=== PATIENT | female | born 1930 | race Caucasian/White ===

== ENCOUNTER 2018-07-23 14:40 | Inpatient (IN) ==
[2018-07-23] MEDS ORDERED: HYDROmorphone 2 MG/ML VIAL IV PRN ×2 (15:13→21:22)
--- NOTE | 2018-07-23 15:22 | XRay Report ---
HISTORY: Fell with hip injury FINDINGS: There is an acute comminuted fracture the proximal right femur. It involves the lesser trochanter and subtrochanteric region. There is a large spicule of bone along the medial side of the proximal shaft of the femur which is displaced in a medial direction 3.4 cm. There is moderate varus angulation. The femoral head and hip joint are normal. There is no arthritis. The Greater trochanter is intact. IMPRESSION: Comminuted fracture of the proximal right femur with moderate deformity Interpreted and Authenticated by: Rishabh Kwon 07/23/18
--- NOTE | 2018-07-23 15:24 | XRay Report ---
HISTORY: Fell with wrist injury FINDINGS: There is an acute comminuted intra-articular fracture the distal radius. There is impaction at the fracture site. Bone fragments are displaced both in all directions. The carpal bones appear normal and remain normally aligned with the radius. There is foreshortening of the radius relative to the ulna. The ulna is normal. IMPRESSION: Comminuted intra-articular fracture of the distal radius with moderate deformity Interpreted and Authenticated by: Rishabh Kwon 07/23/18
--- NOTE | 2018-07-23 15:25 | XRay Report ---
HISTORY: Fell and preop to repair fractured right femur and wrist FINDINGS: The heart is moderately enlarged. The pulmonary vessels appear enlarged. Lung volumes are normal and there is no pulmonary consolidation or evidence of a mass. No pleural effusion is present. The aorta is tortuous and has calcified plaques along the wall. IMPRESSION: cardiomegaly with possible pulmonary vascular congestion Interpreted and Authenticated by: Rishabh Kwon 07/23/18
--- NOTE | 2018-07-23 15:37 | Cat Scan Report ---
History: Fell with pelvic and hip injuries TECHNIQUE: The pelvis was imaged without contrast from above the iliac crests to the proximal femurs. Sagittal and coronal reformats were created. The radiation exposure was limited using dose reduction technology. FINDINGS: There is a comminuted fracture of the proximal shaft of the right femur extending into the lesser trochanter. There is varus angulation. There is a hematoma surrounding the fracture. It measures approximately 4 x 6 cm. Fracture does not extend into the hip joint. There is no pelvic fracture is present. The left proximal femur is normal. The SI joints are normal. Mild arthritis is seen in the symphysis pubis. The L5-S1 disc is moderately narrowed and there is arthritis in the facets. No intrapelvic hematoma is present. Moderate amount stool is seen in the colon. There are few diverticula in the sigmoid colon. IMPRESSION: Fractured proximal right femur No pelvic fracture Maryuri Cardona was called with the results Interpreted and Authenticated by: Rishabh Kwon 07/23/18
--- NOTE | 2018-07-23 15:44 | Emergency Department Note ---
Fall HPI - General Chief Complaint: Fall Stated Complaint: fall, right hip deformity, right wrist pain Time Seen by Provider: 07/23/18 14:45 Source: patient, EMS Mode of arrival: EMS - History of Present Illness HPI Narrative: 87-year-old female presents with right wrist pain and deformity and right hip pain and deformity. She was visiting her friend at a [facility] when she tripped and fell. States she is unsure if she actually tripped or just her hip gave out and she fell or what exactly happened but the next thing she knew she was on the floor. She denies hitting her head. No head, neck, or back pain. She has significant right hip pain as well as right wrist pain. She is right- handed. No numbness or tingling. She was brought in by EMS. States she has been under significant stress lately. Her June 29 and about a week later her son . States the last thing she remembers was just standing there watching TV and the next thing she knew she was on the ground. Family is with her. She does live at home alone. She has family in town that check on her especially since . Place Fall Occurred: [facility] (As a visitor, not a patient) Loss of Consciousness: none Prolonged Down Time?: no Symptoms Prior to Fall: none Associated symptoms (after fall): Denies: neck pain, numbness, weakness, vertigo, confusion - Related Data Home Medications Medication Instructions Recorded Confirmed Alendronate Sodium [Fosamax] 70 mg PO WEEKLY 07/23/18 07/23/18 Aspirin [Adult Low Dose Aspirin EC] 81 mg PO DAILY 07/23/18 07/23/18 Atorvastatin [Lipitor] 20 mg PO HS 07/23/18 07/23/18 Lisinopril [Zestril] 20 mg PO DAILY 07/23/18 07/23/18 amLODIPine [Norvasc] 10 mg PO DAILY 07/23/18 07/23/18 metFORMIN [Glucophage] 500 mg PO [facility] 07/23/18 07/23/18 predniSONE [Prednisone] 5 mg PO ONCE 07/23/18 07/23/18 Allergies Allergy/AdvReac Type Severity Reaction Status Date / Time codeine AdvReac Mild Nausea Verified 07/23/18 14:48 Review of Systems All systems ED: reviewed and negative except as stated. Fall PMH - Past Medical History Medical history: Reports: hyperlipidemia, hypertension Surgical history ED: Reports: tonsillectomy - Social History smoking status: Never smoker Alcohol use: Reports: None Drug use: Reports: none Physical Exam Limitations: no limitations General appearance: alert, in no apparent distress Head: atraumatic, normocephalic, normal inspection Eye: Present: normal appearance. Absent: conjunctival injection ENT: mucous membranes moist Chest: Present: symmetric chest wall rise Respiratory: Present: normal lung sounds bilaterally. Absent: respiratory distress, rales/crackles, wheezes, accessory muscle use Cardiovascular: Present: regular rate, normal heart sounds Extremities: Absent: normal inspection (Right hip tender to palpation and is shortened and rotated. Right wrist with obvious deformity and pain over the distal radius. Pulses intact and sensation intact all 4 extremities.) Neurological: Present: alert, oriented X3 Psychiatric: Present: normal affect, normal mood Skin: Present: warm, dry, intact, normal color. Absent: rash, cyanosis, diaphoresis, erythema Course Course Narrative: At 1530 I did speak with Catia Burris on-call who is going to come in and see the patient. He would like the hospitalist to admit. @ 1343 Toy accepted pt (hospitalist) Vital Signs Temperature 97.6 F 07/23/18 14:42 Pulse Rate 64 07/23/18 14:42 Respiratory Rate 18 07/23/18 14:42 Pulse Oximetry (%) 95 07/23/18 14:42 Temperature 97.6 F 07/23/18 14:42 Pulse Rate 74 07/23/18 15:30 Respiratory Rate 18 07/23/18 14:42 Blood Pressure 118/59 07/23/18 15:30 Pulse Oximetry (%) 90 07/23/18 15:30 Fall - Lab Data Lab results reviewed: Yes I reviewed the patient's lab results. Result diagrams: 07/23/18 15:33 07/23/18 15:33 - Radiology Data Radiology results reviewed: Yes I reviewed the patient's radiology results. Disposition Pt seen by BURR GRINDER/PA only: Yes Clinical Impression: Fall, Hip fracture, right, Wrist fracture, right Disposition: Xfer As Inpt ([facility]) Condition: Fair Referrals: Libby Hawthorne ARNP [Primary Care Provider] - Bib Cheng MD [Physician] - Time of Disposition: 15:48
[2018-07-23 16:04] LABS: Basophils # (Auto) 0 K/mcL (0.0-0.3); Basophils % (Auto) 0.4 % (0.0-2.0); Eosinophils # (Auto) 0.1 K/mcL (0.0-0.7); Eosinophils % (Auto) 0.7 % (0.0-7.0); Granulocytes % (Auto) 79.3 % (38.0-78.0); Lymphocytes # (Auto) 1.2 K/mcL (1.5-4.8); Lymphocytes % (Auto) 11.1 % (15.5-49.0); Mean Cell Volume 91.9 fL (80.0-100.0); Monocytes # (Auto) 0.9 K/mcL (0.1-0.9); Monocytes % (Auto) 8.5 % (1.0-12.0); Platelet Count 473 K/mcL (140-440); RBC 4.39 M/mcL (4.00-5.20); Red Cell Distribution Width 15.3 % (11.5-14.5)
[2018-07-23 16:24] LABS: ALT/SGPT 18 U/l (0-40); Albumin 3.9 gm/dL (3.2-5.2); Albumin/Globulin Ratio 1.3 (1.0-2.3); Alkaline Phosphatase 67 U/L (39-117); Blood Urea Nitrogen 17 mg/dl (8-23)
--- NOTE | 2018-07-23 17:02 | Internal Med History&Physical ---
Medical - H&P: HPI Patient information: Note initiated : 07/23/18 at 4:57 pm Service Date, if different from initiated Date: [] Patient: Greer Mueller a 87 y/o F admitted on for Fall, Right Hip Deformity, Right Wrist Pain. Chief Complaint: [] History of present illness: Ms. Mueller is a 87 year old F with h/o rheumatic heart disease, presents to the ER today after a fall. She notes she was standing at a care center where she was visiting a friend, she fell down spontaneously, not sure if if she passed out but does not think she lost consciousness. Leg just gave away. She fell on the right side, and developed pain on the right side of her hip as well as pain in the right wrist. She was brought to the emergency room for further evaluation The patient lost her a month ago, has been depressed since. She notes that she has been fairly active before this fall. Denies any chest pain denies any shortness of breath dizziness syncope or presyncopal-like episodes nausea vomiting abdominal pain bowel or bladder complaints. Recently she was at a function that she had to walk up 3 blocks, and she did not complain of any chest pain or shortness of breath or dizziness during this walk. Obviously she did walk slowly. The patient in the emergency room had no acute complaints except for pain. On presentation she was hemodynamically stable. Labs showed a hemoglobin of 13.3 platelets 473 INR 1.0 WBC 11,000, chemistry was unremarkable. X-ray of the wrist shows comminuted intra-articular fracture of the distal radius X-ray of the femur shows femur fracture moderate deformity on the right side Pelvis CT was negative for pelvis fractures Chest x-ray shows cardiomegaly and pulmonary vascular congestion EKG shows biatrial enlargement and left ventricular hypertrophy Echo done October 2017 shows severe aortic stenosis left ventricular ejection fraction of 75% patient also had mild aortic stenosis the patient has a history of mitral valve disease. Patient will be admitted to medicine, pt going to surgery from OR Preop risks reviewed with anesthesia and family, very high risk for periopera tive mortality has been reviewed with the patient's daughter. The patient has aortic stenosis severe and has been progressively getting worse it seems. I am not 100% sure if the patient had syncope. [id number] ultrasound was done which showed that IVC collapse was 50% with inspiration. All systems: reviewed and no additional remarkable complaints except as stated (Negative except as per HPI) Medical - H&P: PMH Medical history: History of hip pain Thrombocytosis essential Hypertension Severe aortic stenosis Abnormal heart rhythm Hyperlipidemia Moderate asthma Surgical history: Cataract surgery 2016 Pertinent family history: Mother had heart problems and cancer Father of a myocardial infarction Sister had some cancer Social history: Lives by herself fairly independent, last month Non-smoker never No recreational drugs or alcohol abuse reported Medical - H&P: Meds Home Medications Medication Instructions Recorded Confirmed Type Alendronate Sodium [Fosamax] 70 mg PO WEEKLY 07/23/18 07/23/18 History Aspirin [Adult Low Dose Aspirin EC] 81 mg PO DAILY 07/23/18 07/23/18 History Atorvastatin [Lipitor] 20 mg PO HS 07/23/18 07/23/18 History Lisinopril [Zestril] 20 mg PO DAILY 07/23/18 07/23/18 History amLODIPine [Norvasc] 10 mg PO DAILY 07/23/18 07/23/18 History metFORMIN [Glucophage] 500 mg PO QAC 07/23/18 07/23/18 History predniSONE [Prednisone] 5 mg PO ONCE 07/23/18 07/23/18 History Allergies Allergy/AdvReac Type Severity Reaction Status Date / Time codeine AdvReac Mild Nausea Verified 07/23/18 14:48 Medical - H&P: Exam - Constitutional Vitals: Temp Pulse Resp BP Pulse Ox 97.6 F 82 18 110/62 92 07/23/18 16:52 07/23/18 16:52 07/23/18 16:52 07/23/18 16:52 07/23/18 16:52 Exam: GENERAL: The patient is a well-developed, well-nourished in no apparent distress. Is alert and oriented x3. VITAL SIGNS: Reviewed and as noted elsewhere. HEENT: Head is normocephalic and atraumatic. Extraocular muscles are intact. Pupils are equal, round, and reactive to light. Nares appeared normal. Mouth appears any without lesions. Mucous membranes are dry NECK: Normal to inspection, Supple, No lymphadenopathy or thyromegaly. LUNGS: Air entry equal on both sides, no wheezing, crackles or rhonchi noted. No accessory muscles of respiration. ant chest exam only, HEART: Regular rate and rhythm normal, S1 and S2 heard, no Gallop, S3 or Rub Noted, systolic murmur, aortic and mitral region, 5/6 ABDOMEN: Soft, nontender, and nondistended. Positive bowel sounds. No hepatosplenomegaly was noted. EXTREMITIES: No cyanosis, clubbing, rash, lesions or edema. NEUROLOGIC: Cranial nerves II through XII are grossly intact. Motor and Sensory System Grossly Intact PSYCHIATRIC: Normal affect, Normal Mood. Appropriate Behavior. SKIN: No ulceration or wounds noted, No jaundice, No rash noted. Medical - H&P: Reslt - Labs CBC & Chem 7: 07/23/18 15:33 07/23/18 15:33 Labs: Short CBC 07/23/18 Range/Units 15:33 WBC 11.0 (4.5-11.0) K/mcL Hgb 13.3 (12.0-15.0) g/dL Hct 40.3 (36.0-48.0) % Plt Count 473 H (140-440) K/mcL BMP 07/23/18 15:33 Sodium 139 Potassium 4.0 Chloride 102 Carbon Dioxide 26 BUN 17 Creatinine 0.8 Glucose 129 H Calcium 10.3 Liver Function 07/23/18 Range/Units 15:33 Total Bilirubin 0.4 (0.0-1.0) mg/dL AST 23 (0-37) U/l ALT 18 (0-40) U/l Alkaline Phosphatase 67 (39-117) U/L Albumin 3.9 (3.2-5.2) gm/dL Medical - H&P: A/P - Narrative A/P Narrative: A/P Femur Fracture- Pt in OR, for surgery wrist fracture- Management per ortho Syncope-not sure if pt actually had a sycope, but given her cardiac history its plausible, will monitor on tele for now. Aortic stenosis- severe, monitor bp, and fluid dynamics closely Pre op eval- High risk for wily op mortality, reviewed with family. Asthma- no wheezing noted, bronchodilators for now. DVT enoxaparin DNR code status CArdiac diet
[2018-07-23] MEDS ORDERED: PROPOFOL 200 MG/20 ML VIAL IV ONE (17:10)
[2018-07-23] MEDS ORDERED: KETAMINE 100 MG/ML ML IV ONE (17:10)
[2018-07-23] MEDS ORDERED: PHENYLEPHRINE 10 MG/ML VIAL IV ONE (17:10)
[2018-07-23] MEDS ORDERED: GLYCOPYRROLATE 0.2 MG/ML VIAL IV ONE (17:10)
[2018-07-23] MEDS ORDERED: ROCURONIUM 10 MG/ML ML IV ONE (17:10)
[2018-07-23] MEDS ORDERED: MIDAZOLAM 2 MG/2 ML VIAL IV ONE (17:10)
[2018-07-23] MEDS ORDERED: EPINEPHrine 1 MG/10 ML (1:10,000) SYRINGE IV ONE (17:10)
[2018-07-23] MEDS ORDERED: fentaNYL 100 MCG/2 ML VIAL IV ONE (17:10)
[2018-07-23] MEDS ORDERED: ROPIVACAINE HCL/PF 30 ML VIAL IJ ONE (17:10)
[2018-07-23] MEDS ORDERED: ceFAZolin 1 GM VIAL IV ONE (17:10)
[2018-07-23] MEDS ORDERED: ONDANSETRON 4 MG/2 ML VIAL IV ONE (17:10)
[2018-07-23] MEDS ORDERED: TRANEXAMIC ACID 1,000 MG/10 ML VIAL IV ONE (17:10)
[2018-07-23] MEDS ORDERED: ePHEDrine 50 MG/ML AMPUL IV ONE (17:10)
[2018-07-23] MEDS ORDERED: DEXAMETHASONE 10 MG/ML VIAL IV ONE (17:10)
[2018-07-23] MEDS ORDERED: LIDOCAINE HCL/PF 100 MG/5 ML SYRINGE IV ONE (17:10)
[2018-07-23] MEDS ORDERED: methylPREDNISolone SOD SUCC 125 MG/2 ML VIAL IV ONE (17:10)
[2018-07-23] MEDS ORDERED: VASOPRESSIN 20 UNIT/ML VIAL IV ONE (17:10)
[2018-07-23] MEDS ORDERED: NEOSTIGMINE 1 MG/ML VIAL IV ONE (17:10)
--- NOTE | 2018-07-23 17:27 | Consultation ---
DATE OF CONSULTATION: 07/23/2018 IDENTIFICATION: This is an 87-year-old female. CHIEF COMPLAINT: Right distal radius fracture and right hip fracture. HISTORY: This elderly lady was visiting a friend at the [facility]. She tripped and fell, had immediate pain and deformity of both her right upper extremity and her right lower extremity. She was transported here to [facility] where she was evaluated, and the workup has shown a comminuted fracture of her right hip. Additionally, she has a markedly collapsed and angulated intra-articular distal radius fracture. PAST MEDICAL HISTORY: Significant for hypertension and hyperlipidemia. She also has valvular heart disease and gets an echocardiogram yearly and type 2 diabetes. PAST SURGICAL HISTORY: Tonsillectomy. Otherwise, nil. MEDICATIONS: Include Fosamax, aspirin, Lipitor, Zestril, Norvasc, Glucophage, prednisone. 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 REVIEW OF SYSTEMS: Balance 10-point review of systems has been unremarkable. SOCIAL HISTORY: She lives alone. Her recently. PHYSICAL EXAMINATION: GENERAL: She is awake and alert. She is resting comfortably. HEAD: Normocephalic, atraumatic. EYES: PERRLA. Conjunctivae clear. ENT: Within normal limits. NECK: Supple without pain on range of motion. HEART: Regular. She does have a significant murmur. LUNGS: Clear bilaterally. ABDOMEN: Benign. EXTREMITIES: Lower extremities, her right lower extremity is carefully positioned to any motion, but there is shortening and malrotation. Any motion reproduces pain. She does seem to be grossly neurovascularly intact distally. Her right upper extremities again show significant deformity. Her skin is intact. She seems to be grossly without neurovascular deficit. IMAGING: Her radiographs demonstrate a complex fracture of the intertrochanteric region extending well below the lesser trochanter. Her distal radius demonstrates a markedly angulated significantly shortened distal radius fracture that is comminuted and intra-articular. IMPRESSION: Fractures as above. Both are in need of open reduction and internal fixation, would review treatment options, risks, complications, limitations of surgery. She and her daughter understand these well and wishes to proceed. GDD:in Job ID: [id number] Doc ID: [id number] Bib Cheng MD
[2018-07-23] MEDS ORDERED: GENTAMICIN SULFATE 800 MG/20 ML VIAL IR ONE (17:46)
[2018-07-23] MEDS ORDERED: fentaNYL 100 MCG/2 ML VIAL IV PRN (19:39)
[2018-07-23] MEDS ORDERED: FLUMAZENIL 0.1 MG/ML ML IV PRN (19:39)
[2018-07-23] MEDS ORDERED: IPRATROPIUM/ALBUTEROL 3 ML AMPUL.NEB NEB PRN (19:39)
[2018-07-23] MEDS ORDERED: ACETAMINOPHEN 1,000 MG/100 ML BOTTLE IV ONE (19:39)
[2018-07-23] MEDS ORDERED: LACTATED RINGERS 250 ML IV PRN (19:39)
[2018-07-23] MEDS ORDERED: NALOXONE HCL 0.4 MG/ML VIAL IV PRN ×2 (19:39→21:22)
[2018-07-23] MEDS ORDERED: BENZOCAINE/MENTHOL 1 LOZENGE PO PRN (19:39)
[2018-07-23] MEDS ORDERED: ONDANSETRON 4 MG/2 ML VIAL IV PRN ×2 (19:39→21:22)
[2018-07-23] MEDS ORDERED: METHOCARBAMOL 1,000 MG/10 ML VIAL IV PRN (19:39)
[2018-07-23] MEDS ORDERED: LACTATED RINGERS 1,000 ML IV SCH (19:45)
[2018-07-23] MEDS ORDERED: ACETAMINOPHEN 325 MG TABLET PO PRN (21:22)
[2018-07-23] MEDS ORDERED: oxyCODONE/APAP 5/325MG TABLET PO PRN (21:22)
[2018-07-23] MEDS ORDERED: IPRATROPIUM/ALBUTEROL 3 ML AMPUL.NEB NEB ONE (21:43)
[2018-07-23] MEDS: IPRATROPIUM/ALBUTEROL 3 ML AMPUL.NEB NEB SCH (21:50)
[2018-07-24] MEDS: 0.9 % SODIUM CHLORIDE 10 ML SYRINGE IV SCH ×4 (00:24→20:49)
[2018-07-24] MEDS: IPRATROPIUM/ALBUTEROL 3 ML AMPUL.NEB NEB SCH ×4 (01:15→18:28)
[2018-07-24 06:52] LABS: Basophils # (Auto) 0 K/mcL (0.0-0.3); Basophils % (Auto) 0 % (0.0-2.0); Eosinophils # (Auto) 0 K/mcL (0.0-0.7); Eosinophils % (Auto) 0 % (0.0-7.0); Granulocytes % (Auto) 95.9 % (38.0-78.0); Lymphocytes # (Auto) 0.4 K/mcL (1.5-4.8); Lymphocytes % (Auto) 1.9 % (15.5-49.0); Mean Cell Volume 92.7 fL (80.0-100.0); Mean Corpuscular HGB Conc 32.8 g/dL (31.0-36.0); Monocytes # (Auto) 0.5 K/mcL (0.1-0.9); Monocytes % (Auto) 2.2 % (1.0-12.0); Platelet Count 386 K/mcL (140-440); RBC 3.59 M/mcL (4.00-5.20); Red Cell Distribution Width 15.6 % (11.5-14.5)
[2018-07-24 07:15] LABS: ALT/SGPT 18 U/l (0-40); Albumin 3.3 gm/dL (3.2-5.2); Albumin/Globulin Ratio 1.3 (1.0-2.3); Alkaline Phosphatase 54 U/L (39-117); Bilirubin,Direct < 0.2 mg/dL (0.0-0.3); Blood Urea Nitrogen 17 mg/dl (8-23); Gamma Glutamyl Transpeptidase 11 U/L (5-36); Uric Acid 4.4 mg/dL (2.5-8.0)
--- NOTE | 2018-07-24 07:20 | Orthopedic Progress Note ---
Subjective Patient information: Note initiated : 07/24/18 at 7:18 am Service Date, if different from initiated Date: [] Patient: Greer Mueller 87 y/o F admitted on 07/23/18 for Fall, Right Hip Deformity, Right Wrist Pain. Chief Complaint: [S/p ORIF of right proximal femur fx, s/p ORIF fo right distal radius fx] Patient is doing well. She complains of tingling in the digits of her RUE likely due to the anesthetic block post surgery. Otherwise no complaints. She denies any new onset lower extremity weakness or calf tenderness. Overall pain is minimal. Principal diagnosis: Right intertrochanteric hip fx, right displaced distal radius fx Objective Vital signs: Vital Signs Temp Pulse Pulse Resp BP BP Pulse Ox 07/24/18 04:00 99.5 F H 86 12 113/58 96 07/24/18 03:00 77 12 98/55 97 07/24/18 02:00 77 12 102/56 96 07/24/18 01:00 71 12 96/57 96 07/24/18 00:00 97 F 82 16 94/51 93 07/23/18 23:00 78 12 92/50 97 07/23/18 22:41 74 16 102/53 96 07/23/18 22:26 78 16 100/55 97 07/23/18 22:06 76 16 07/23/18 22:00 79 12 95/52 96 07/23/18 21:56 78 16 88/55 96 07/23/18 21:45 80 16 07/23/18 21:41 76 12 88/51 97 07/23/18 21:26 76 16 102/50 99 07/23/18 21:22 97.6 F 77 16 100/54 97 07/23/18 21:11 98.2 F 16 100/54 95 07/23/18 21:02 97.5 F 75 22 99/46 92 07/23/18 20:50 96.7 F L 79 15 111/42 93 07/23/18 20:41 96.8 F L 77 17 101/42 91 07/23/18 20:30 96.9 F L 72 19 93/57 99 07/23/18 20:25 97.2 F 77 18 97 07/23/18 20:20 80 15 134/51 100 07/23/18 20:15 72 13 99/45 99 07/23/18 20:13 97.9 F 78 14 107/54 96 07/23/18 16:52 97.6 F 82 18 110/62 92 07/23/18 16:01 82 110/62 92 07/23/18 15:46 73 111/57 91 07/23/18 15:30 74 118/59 90 07/23/18 14:53 71 116/63 95 07/23/18 14:42 97.6 F 64 18 95 Intake and Output 07/23/18 07/24/18 07/24/18 21:59 05:59 13:59 Intake Total 1400 340 Output Total 250 250 Balance 1150 90 Intake: IV 100 Oral 340 IV - Manual Only 1300 Output: Urine Catheter Amount 150 250 Estimated Blood Loss 100 Other: Urine Appearance Clear Uretheral (Wall) Clear Urine Color Dark Yellow Uretheral (Wall) Light Tawanna Urine Odor Strong Weight 153 lb 8 oz Intake & Output: Intake & Output 07/23/18 07/24/18 07/24/18 21:59 05:59 13:59 Intake Total 1400 340 Output Total 250 250 Balance 1150 90 Weight 153 lb 8 oz Intake: IV 100 Oral 340 IV - Manual Only 1300 Output: Urine Catheter Amount 150 250 Estimated Blood Loss 100 Other: Urine Appearance Clear Uretheral (Wall) Clear Urine Color Dark Yellow Uretheral (Wall) Light Tawanna Urine Odor Strong Incision: Yes healing, Yes clean and dry Incision clean and dry: Yes Dressing: Yes clean, Yes dry, Yes intact Weight bearing status: non Neurological exam IM: Yes alert, Yes oriented X3, Yes motor sensory intact, Yes neurovascular intact Extremities exam IM: Yes calf tenderness (negative bilaterally), Yes Laura's sig n (negative bilaterally), Yes Foot pink and warm, Yes neurovascular intact - Labs CBC & BMP: 07/24/18 03:30 07/24/18 03:30 Labs: Orthopedic Labs 07/23/18 15:36 PT 13.1 INR 1.0 07/24/18 07/23/18 03:30 15:33 Hgb 10.9 L 13.3 Hct 33.3 L 40.3 Assessment and Plan (1) Hip fracture, right Toe-touch weight-bearing on the right lower extremity. May stand with PT. Use trough walker with standing/walking. Likely discharge to SNF in 1-2 days. Status: Acute (2) Wrist fracture, right No lifting, pushing, or pulling with the right upper extremity. Use trough walker if standing. May loosen cesia bandage if numbness doesn't improve. Wear brace at all times. Likely discharge to SNF in 1-2 days. She may be transferred from ICU per Dr. Yeager. Status: Acute
[2018-07-24] MEDS ORDERED: MAGNESIUM SULFATE 2 GM/50 ML BAG IV ONE (07:58)
--- NOTE | 2018-07-24 08:07 | Operative Note ---
DATE OF OPERATION: 07/23/2018 PREOPERATIVE DIAGNOSES: 1. Comminuted right intertrochanteric/subtrochanteric hip fracture. 2. Comminuted intra-articular right distal radius fracture. POSTOPERATIVE DIAGNOSES: 1. Comminuted right intertrochanteric/subtrochanteric hip fracture. 2. Comminuted intra-articular right distal radius fracture. OPERATION PROPOSED: 1. Open reduction and internal fixation of right intertrochanteric hip fracture. 2. Open reduction and internal fixation of right comminuted intra-articular distal radius fracture. OPERATION PERFORMED: 1. Open reduction and internal fixation of right intertrochanteric hip fracture. 2. Open reduction and internal fixation of right comminuted intra-articular distal radius fracture. OPERATING SURGEON: Romie Cheng MD SCALLOP BINDER: Bee Aldridge PA-C INDICATIONS: This is an elderly lady with a markedly displaced fracture of her intertrochanteric region right hip, and she also has a comminuted significantly shortened distal radius fracture with intra-articular extent, need of operative stabilization. OPERATION IN DETAIL: Informed consent was obtained. She was taken to the operating where she was provided appropriate anesthetic and prophylactic antibiotics. She was carefully positioned on the operative frame. The best possible reduction was obtained. I made an incision proximal to the greater trochanter and advanced through the gluteal musculature, arriving the tip of the greater trochanter. I advanced a 3.2 mm guidewire. This fracture was comminuted, involved the subtrochanteric region such that I went ahead and opened a 5 cm incision at about the level of the insertion for the retrograde hip bolt. I opened the fracture. I was able to manipulate the fracture fragments and advance a guidewire across these. I used an opening reamer and advanced the opening reamer to its full stop. I then used flexible reamers to 11.5, I advanced a 10 x 380 intramedullary harjit from [employer]. I then advanced a 3.2 mm guidewire retrograde into the femoral head and neck. I confirmed the position with fluoroscopy. I then reamed and placed an 85 mm hip bolt. This was locked to the proximal harjit. I then placed distal interlocking screws. The wounds were irrigated thoroughly. They were closed with a 0 Vicryl in interrupted fashion, 2-0 Vicryl inverted deep dermal, and maty. The patient was repositioned on the operative frame. A hand table was placed. I exsanguinated the right arm. I made a volar approach to the forearm. I elevated the pronator musculature. I performed the best possible reduction and a K-wire was placed from the styloid holding this in position. I provisionally fixed a volar plate from [employer] with a 3.5 cortical screw. I drilled the distal holes. These were filled with smooth pegs that were locked to the plate. I tightened the 3.5 Provisional screw. I placed screws an additional 2 3.5 cortical screws in the plate. The wounds were irrigated and closed with a 2-0 Vicryl, reapproximated the pronator over the plate. I used a 2 inverted deep dermal, and a running 4-0 nylon. The procedure was tolerated well. There were no complications. ESTIMATED BLOOD LOSS: 250 to 300 mL GDD:samy Job ID: [id number] Doc ID: [id number] Bib Cheng MD
[2018-07-24] MEDS ORDERED: ENOXAPARIN 40 MG/0.4 ML SYRINGE SQ SCH (09:00)
[2018-07-24] MEDS ORDERED: ACETAMINOPHEN 325 MG TABLET PO PRN (10:36)
[2018-07-24] MEDS ORDERED: NALOXONE HCL 0.4 MG/ML VIAL IV PRN (10:36)
[2018-07-24] MEDS ORDERED: predniSONE 5 MG TABLET PO SCH (10:36)
[2018-07-24] MEDS ORDERED: ONDANSETRON 4 MG/2 ML VIAL IV PRN (10:36)
[2018-07-24] MEDS ORDERED: HYDROmorphone 2 MG/ML VIAL IV PRN (10:36)
--- NOTE | 2018-07-24 16:40 | Internal Med Progress Note ---
Medical - PN: Subj Patient information: Note initiated : 07/24/18 at 4:37 pm Service Date, if different from initiated Date: [] Patient: Greer Mueller a 87 y/o F admitted on 07/23/18 for Fall, Right Hip Deformity, Right Wrist Pain. Chief Complaint: [] Interval history: Ms. Mueller is a 87 year old F with h/o rheumatic heart disease, presents to the ER today after a fall. She notes she was standing at a care center where she was visiting a friend, she fell down spontaneously, not sure if if she passed out but does not think she lost consciousness. Leg just gave away. She fell on the right side, and developed pain on the right side of her hip as well as pain in the right wrist. She was brought to the emergency room for further evaluation The patient lost her a month ago, has been depressed since. She notes that she has been fairly active before this fall. Denies any chest pain denies any shortness of breath dizziness syncope or presyncopal-like episodes nausea vomiting abdominal pain bowel or bladder complaints. Recently she was at a function that she had to walk up 3 blocks, and she did not complain of any chest pain or shortness of breath or dizziness during this walk. Obviously she did walk slowly. The patient in the emergency room had no acute complaints except for pain. On p resentation she was hemodynamically stable. Labs showed a hemoglobin of 13.3 platelets 473 INR 1.0 WBC 11,000, chemistry was unremarkable. X-ray of the wrist shows comminuted intra-articular fracture of the distal radius X-ray of the femur shows femur fracture moderate deformity on the right side Pelvis CT was negative for pelvis fractures Chest x-ray shows cardiomegaly and pulmonary vascular congestion EKG shows biatrial enlargement and left ventricular hypertrophy Echo done October 2017 shows severe aortic stenosis left ventricular ejection fraction of 75% patient also had mild aortic stenosis the patient has a history of mitral valve disease. Patient will be admitted to medicine, pt going to surgery from OR Preop risks reviewed with anesthesia and family, very high risk for perioperati ve mortality has been reviewed with the patient's daughter. The patient has aortic stenosis severe and has been progressively getting worse it seems. I am not 100% sure if the patient had syncope. [id number] ultrasound was done which showed that IVC collapse was 50% with inspiration. 07/24 P[t seen examine, no new complaints, s/p surgery, only pain when moves labs reviewed, wbc elevated but likely reactive monitor. Pertinent ROS: Denies headache, dizziness Denies chest pain, palpitations Denies cough or shortness of breath Denies abdominal pain, nausea or vomiting. - Constitutional Vitals: Vital Signs Temp Pulse Resp BP Pulse Ox 98.2 F 90 18 102/58 95 07/24/18 12:00 07/24/18 13:04 07/24/18 13:04 07/24/18 12:00 07/24/18 12:00 Period Temp Pulse Resp BP Sys/Medina Pulse Ox Last 24 Hr 96.7 F-99.5 F 70-95 06-23 88-134/42-64 91-100 Intake and Output 07/24/18 07/24/18 07/24/18 05:59 13:59 21:59 Intake Total 340 220 250 Output Total 250 285 Balance 90 220 -35 Intake & Output: Intake & Output 07/24/18 07/24/18 07/24/18 05:59 13:59 21:59 Intake Total 340 220 250 Output Total 250 285 Balance 90 220 -35 Intake: Oral 340 220 250 Output: Urine Catheter Amount 250 285 Other: Meal Breakfast Lunch Percent of Meal Consumed 100% 100% Feeding Ability Assist with Tray Set Up Assist with Tray Set Up Urine Appearance Clear Uretheral (Wall) Clear Urine Color Light Tawanna Uretheral (Wall) Light Tawanna Exam: Constitutional; Afebrile, cooperative, alert, not in distress. Respiratory system: Air Entry equal on both sides, No crackles or wheezing, no rhonchi. CVS- Rate rhythm regular, S1,S2 heard, no gallop, no rub. Abdomen- Soft nontender abdomen, no organomegaly, no tenderness, no guarding or rigidity, [employer]OR- AOOx3, Medical - PN: Obj Da - Labs CBC & Chem 7: 07/24/18 03:30 07/24/18 03:30 Labs: Abnormal Lab Results 07/24/18 07/24/18 07/23/18 03:30 03:30 15:33 WBC 22.0 H RBC 3.59 L Hgb 10.9 L Hct 33.3 L RDW 15.6 H Plt Count Gran % 95.9 H Lymph % (Auto) 1.9 L Gran # 21.1 H Lymph # (Auto) 0.4 L Glucose 157 H 129 H Magnesium 1.5 L Lactate Dehydrogenase 272 H 07/23/18 15:33 WBC RBC Hgb Hct RDW 15.3 H Plt Count 473 H Gran % 79.3 H Lymph % (Auto) 11.1 L Gran # 8.7 H Lymph # (Auto) 1.2 L Glucose Magnesium Lactate Dehydrogenase Meds: Medications Acetaminophen (Tylenol) 650 mg PO Q6HP PRN PRN Reason: PAIN/FEVER > 101 Albuterol/Ipratropium (Duoneb) 3 ml NEB Q6HRT [facility] Last Admin: 07/24/18 13:04 Dose: 3 ml Documented by: Amlodipine Besylate (Norvasc) 10 mg PO DAILY [facility] Aspirin (Aspirin) 81 mg PO DAILY [facility] Atorvastatin Calcium (Lipitor) 20 mg PO HS [facility] Enoxaparin Sodium (Lovenox) 40 mg SQ DAILY [facility] Hydromorphone HCl (Dilaudid) 0.5 mg IV Q2HP PRN PRN Reason: PAIN LEVEL > 6 Lisinopril (Zestril) 20 mg PO DAILY [facility] Naloxone HCl (Narcan) 0.1 mg IV Q2MIN PRN PRN Reason: Opiate Reversal Ondansetron HCl (Zofran) 4 mg IV Q4HP PRN PRN Reason: Nausea And Vomiting Oxycodone/Acetaminophen (Percocet 5-325 Mg) 1 tab PO Q4HP PRN PRN Reason: PAIN LEVEL 3-6 Prednisone (Prednisone) 5 mg PO DAILY [facility] Last Admin: 07/24/18 11:44 Dose: 5 mg Documented by: Sodium Chloride (Saline Flush) 10 ml IV Q8 [facility] Last Admin: 07/24/18 14:25 Dose: 10 ml Documented by: Medical - PN: A/P - Time Spent With Patient Total time spent is greater than 50% in coordination of care (as documented) at patient's floor/unit and/or counseling patient: - Narrative A/P Narrative: A/P Femur Fracture/ wrist fracture: management per ortho Syncope-no events on tele, noted. Aortic stenosis- severe, monitor bp, and fluid dynamics closely, outpatient follow up with cardiology HTN- resume home meds Asthma- no wheezing noted, bronchodilators for now. DVT enoxaparin DNR code status CArdiac diet xfer to med surg status. Medical - PN: Qual - VTE Deep Vein Thrombosis/Pulmonary Embolism Present on Admission: No
[2018-07-24] MEDS ORDERED: 0.9 % SODIUM CHLORIDE 1,000 ML IV SCH (17:30)
[2018-07-24] MEDS: oxyCODONE/APAP 5/325MG TABLET PO PRN (19:07)
[2018-07-24] MEDS: ATORVASTATIN 20 MG TABLET PO SCH (20:47)
[2018-07-24] MEDS ORDERED: traZODone HCL 50 MG TABLET PO PRN (22:22)
[2018-07-24] MEDS ORDERED: FUROSEMIDE 20 MG/2 ML VIAL IV ONE (22:47)
[2018-07-24] MEDS ORDERED: FUROSEMIDE 40 MG/4 ML VIAL IV ONE (22:55)
[2018-07-24] MEDS ORDERED: HYDROCORTISONE SOD SUCC 100 MG VIAL IV ONE (22:55)
[2018-07-24] MEDS: HYDROCORTISONE SOD SUCC 100 MG VIAL IV SCH (23:04)
[2018-07-24] MEDS: MELATONIN 3 MG TABLET PO PRN (23:04)
[2018-07-25] MEDS: IPRATROPIUM/ALBUTEROL 3 ML AMPUL.NEB NEB SCH ×4 (01:29→19:42)
[2018-07-25] MEDS: oxyCODONE/APAP 5/325MG TABLET PO PRN ×4 (05:05→21:57)
[2018-07-25] MEDS: HYDROCORTISONE SOD SUCC 100 MG VIAL IV SCH ×3 (05:31→21:57)
[2018-07-25] MEDS: 0.9 % SODIUM CHLORIDE 10 ML SYRINGE IV SCH ×3 (05:31→21:58)
[2018-07-25 05:52] LABS: Basophils # (Auto) 0 K/mcL (0.0-0.3); Basophils % (Auto) 0 % (0.0-2.0); Eosinophils # (Auto) 0 K/mcL (0.0-0.7); Eosinophils % (Auto) 0 % (0.0-7.0); Granulocytes % (Auto) 93.5 % (38.0-78.0); Lymphocytes # (Auto) 0.5 K/mcL (1.5-4.8); Lymphocytes % (Auto) 2.4 % (15.5-49.0); Mean Cell Volume 91.3 fL (80.0-100.0); Mean Corpuscular HGB Conc 33.6 g/dL (31.0-36.0); Monocytes # (Auto) 0.9 K/mcL (0.1-0.9); Monocytes % (Auto) 4.1 % (1.0-12.0); Platelet Count 371 K/mcL (140-440); RBC 3.19 M/mcL (4.00-5.20); Red Cell Distribution Width 15.7 % (11.5-14.5)
[2018-07-25 06:34] LABS: ALT/SGPT 20 U/l (0-40); Albumin 2.9 gm/dL (3.2-5.2); Albumin/Globulin Ratio 1.1 (1.0-2.3); Alkaline Phosphatase 67 U/L (39-117); Bilirubin,Direct < 0.2 mg/dL (0.0-0.3); Blood Urea Nitrogen 18 mg/dl (8-23); Gamma Glutamyl Transpeptidase 11 U/L (5-36); Uric Acid 5.3 mg/dL (2.5-8.0)
--- NOTE | 2018-07-25 06:57 | Brief Operative Note ---
Date of procedure: 07/23/18 Pre-op diagnosis: R hip fracture R wrist fracture Post-op diagnosis: same Procedure: Orif Grafts/Implants: Yes (glendy, hand inovations) Anesthesia: GETA Complications: none Surgeon: Bib Cheng Television Antenna Installer: Bee Aldridge Estimated blood loss (cc): 250 Specimens Removed/Pathology: none sent Condition: stable Disposition: PACU
--- NOTE | 2018-07-25 06:59 | Orthopedic Progress Note ---
Subjective Patient information: Note initiated : 07/25/18 at 6:57 am Service Date, if different from initiated Date: [] Patient: Greer Mueller 87 y/o F admitted on 07/23/18 for Fall, Right Hip Deformity, Right Wrist Pain. Chief Complaint: [] Principal diagnosis: Right intertrochanteric hip fx, right displaced distal radius fx Interval history: no new issues Objective Vital signs: Vital Signs Temp Pulse Pulse Resp BP BP Pulse Ox 07/25/18 04:08 97.9 F 91 H 20 106/61 97 07/24/18 23:22 98.4 F 90 20 97/53 93 07/24/18 22:05 98.4 F 98 H 109/59 94 07/24/18 19:24 98.5 F 100 H 28 H 98/51 92 07/24/18 19:13 92 07/24/18 18:30 99 H 18 07/24/18 16:00 98.7 F 18 94/45 93 07/24/18 13:04 90 18 07/24/18 12:00 98.2 F 70 16 102/58 95 07/24/18 11:51 98.6 F 07/24/18 08:00 98.6 F 95 H 14 113/64 94 07/24/18 07:36 87 14 07/24/18 07:31 91 Intake and Output 07/24/18 07/25/18 07/25/18 21:59 05:59 13:59 Intake Total 1290 2395 Output Total 285 1875 Balance 1005 520 Intake: IV 495 Sodium Chloride 0.9% 1,000 ml @ 495 100 mls/hr IV .Q10H [facility] Rx#: [id number] Oral 1290 1900 Output: Urine Catheter Amount 285 1875 Other: Meal Dinner Percent of Meal Consumed 75% Feeding Ability Assist with Tray Set Up Urine Appearance Clear Clear Urine Color Light Tawanna Straw Urine Odor Normal Weight 156 lb Intake & Output: Intake & Output 07/24/18 07/25/18 07/25/18 21:59 05:59 13:59 Intake Total 1290 2395 Output Total 285 1875 Balance 1005 520 Weight 156 lb Intake: IV 495 Sodium Chloride 0.9% 1,000 ml @ 495 100 mls/hr IV .Q10H [facility] Rx#: [id number] Oral 1290 1900 Output: Urine Catheter Amount 285 1875 Other: Meal Dinner Percent of Meal Consumed 75% Feeding Ability Assist with Tray Set Up Urine Appearance Clear Clear Urine Color Light Tawanna Straw Urine Odor Normal Dressing: Yes clean, Yes dry, Yes intact Weight bearing status: partial Neurological exam IM: Yes neurovascular intact - Labs CBC & BMP: 07/25/18 04:20 07/25/18 04:20 Labs: Orthopedic Labs 07/23/18 15:36 PT 13.1 INR 1.0 07/25/18 07/24/18 07/23/18 04:20 03:30 15:33 Hgb 9.8 L 10.9 L 13.3 Hct 29.1 L 33.3 L 40.3 Assessment and Plan (1) Hip fracture, right Status: Acute Qualifiers: Encounter type: subsequent encounter Fracture type: closed - Narrative A/P Narrative: patient is ttwb on R hip and Nwb R wrist. continue to mobilize with pt. To SNF
[2018-07-25] MEDS ORDERED: FUROSEMIDE 20 MG/2 ML VIAL IV ONE (07:32)
[2018-07-25] MEDS ORDERED: amLODIPine 10 MG TABLET PO SCH (09:00)
[2018-07-25] MEDS ORDERED: ASPIRIN 81 MG TAB.CHEW PO SCH (09:00)
[2018-07-25] MEDS ORDERED: LISINOPRIL 20 MG TABLET PO SCH (09:00)
[2018-07-25] MEDS: ENOXAPARIN 40 MG/0.4 ML SYRINGE SQ SCH (09:12)
[2018-07-25] MEDS: ASPIRIN 81 MG TAB.CHEW CHEWED SCH ×2 (09:12→21:57)
--- NOTE | 2018-07-25 18:19 | Internal Med Progress Note ---
Medical - PN: Subj Patient information: Note initiated : 07/25/18 at 6:16 pm Service Date, if different from initiated Date: [] Patient: Greer Mueller a 87 y/o F admitted on 07/23/18 for Fall, Right Hip Deformity, Right Wrist Pain. Chief Complaint: [] Interval history: Ms. Mueller is a 87 year old F with h/o rheumatic heart disease, presents to the ER today after a fall. She notes she was standing at a care center where she was visiting a friend, she fell down spontaneously, not sure if if she passed out but does not think she lost consciousness. Leg just gave away. She fell on the right side, and developed pain on the right side of her hip as well as pain in the right wrist. She was brought to the emergency room for further evaluation The patient lost her a month ago, has been depressed since. She notes that she has been fairly active before this fall. Denies any chest pain denies any shortness of breath dizziness syncope or presyncopal-like episodes nausea vomiting abdominal pain bowel or bladder complaints. Recently she was at a function that she had to walk up 3 blocks, and she did not complain of any chest pain or shortness of breath or dizziness during this walk. Obviously she did walk slowly. The patient in the emergency room had no acute complaints except for pain. On p resentation she was hemodynamically stable. Labs showed a hemoglobin of 13.3 platelets 473 INR 1.0 WBC 11,000, chemistry was unremarkable. X-ray of the wrist shows comminuted intra-articular fracture of the distal radius X-ray of the femur shows femur fracture moderate deformity on the right side Pelvis CT was negative for pelvis fractures Chest x-ray shows cardiomegaly and pulmonary vascular congestion EKG shows biatrial enlargement and left ventricular hypertrophy Echo done October 2017 shows severe aortic stenosis left ventricular ejection fraction of 75% patient also had mild aortic stenosis the patient has a history of mitral valve disease. Patient will be admitted to medicine, pt going to surgery from OR Preop risks reviewed with anesthesia and family, very high risk for perioperati ve mortality has been reviewed with the patient's daughter. The patient has aortic stenosis severe and has been progressively getting worse it seems. I am not 100% sure if the patient had syncope. [id number] ultrasound was done which showed that IVC collapse was 50% with inspiration. 07/24 P[t seen examine, no new complaints, s/p surgery, only pain when moves labs reviewed, wbc elevated but likely reactive monitor. 07/25 Patient seen and examined, overnight was short of breath, responded to Lasix. I started on IV hydrocortisone at stress doses for now. She remained stable This morning the patient was sitting in the chair, complained about pain at the site of surgery because she has been sitting in the chair for a long time breathing is much better Hold blood pressure medications her blood pressures in the lower end of normal Pertinent ROS: Denies headache, dizziness Denies chest pain, palpitations Denies cough or shortness of breath (improved from overnight) Denies abdominal pain, nausea or vomiting. - Constitutional Vitals: Vital Signs Temp Pulse Resp BP Pulse Ox 97.3 F 93 H 24 H 109/57 93 07/25/18 17:28 07/25/18 17:28 07/25/18 14:19 07/25/18 17:28 07/25/18 17:28 Period Temp Pulse Resp BP Sys/Medina Pulse Ox Last 24 Hr 97.3 F-99.3 F 62-100 16-28 97-118/51-65 92-97 Intake and Output 07/25/18 07/25/18 07/25/18 05:59 13:59 21:59 Intake Total 2395 1090 300 Output Total 1875 1700 675 Balance 520 -610 -375 Weight 156 lb Patient Weight 07/26/18 05:59 Weight 156 lb Intake & Output: Intake & Output 07/25/18 07/25/18 07/25/18 05:59 13:59 21:59 Intake Total 2395 1090 300 Output Total 1875 1700 675 Balance 520 -610 -375 Weight 156 lb Intake: IV 495 Sodium Chloride 0.9% 1,000 ml @ 495 100 mls/hr IV .Q10H [facility] Rx#: [id number] Oral 1900 1090 GI Tube Flush 300 Output: Urine Catheter Amount 1875 1700 Void Amount 675 Other: Meal Lunch Percent of Meal Consumed 75% Urine Appearance Clear Clear Clear Urine Color Straw Bright Yellow Pale Urine Odor Normal Normal Exam: Constitutional; Afebrile, cooperative, alert, not in distress. Eyes- No icterus, , No periorbital swelling Ears- Ext ear normal, hearing normal to conversation. Neck- Midline trachea, supple Respiratory system: Air Entry equal on both sides, mild basilar crackles at bases, (was worse last night) . CVS- Rate rhythm regular, S1,S2 heard, no gallop, no rub. Abdomen- Soft nontender abdomen, no organomegaly, no tenderness, no guarding or rigidity, [employer]RE[employer]UR [employer] PERSONALITY- AOOx3, moving all extremities, no gross focal deficit noted. Medical - PN: Obj Da - Labs CBC & Chem 7: 07/25/18 04:20 07/25/18 04:20 Labs: Abnormal Lab Results 07/25/18 07/25/18 07/24/18 04:20 04:20 03:30 WBC 21.1 H RBC 3.19 L Hgb 9.8 L Hct 29.1 L RDW 15.7 H Plt Count Gran % 93.5 H Lymph % (Auto) 2.4 L Gran # 19.7 H Lymph # (Auto) 0.5 L Sodium 131 L Glucose 150 H 157 H Calcium 8.2 L Magnesium 1.5 L AST 44 H Lactate Dehydrogenase 347 H 272 H Total Protein 5.5 L Albumin 2.9 L 07/24/18 07/23/18 07/23/18 03:30 15:33 15:33 WBC 22.0 H RBC 3.59 L Hgb 10.9 L Hct 33.3 L RDW 15.6 H 15.3 H Plt Count 473 H Gran % 95.9 H 79.3 H Lymph % (Auto) 1.9 L 11.1 L Gran # 21.1 H 8.7 H Lymph # (Auto) 0.4 L 1.2 L Sodium Glucose 129 H Calcium Magnesium AST Lactate Dehydrogenase Total Protein Albumin Meds: Medications Acetaminophen (Tylenol) 650 mg PO Q6HP PRN PRN Reason: PAIN/FEVER > 101 Last Admin: 07/24/18 16:43 Dose: 650 mg Documented by: Albuterol/Ipratropium (Duoneb) 3 ml NEB Q6HRT [facility] Last Admin: 07/25/18 13:04 Dose: Not Given Documented by: Aspirin (Aspirin) 81 mg CHEWED BID [facility] Last Admin: 07/25/18 09:12 Dose: 81 mg Documented by: Atorvastatin Calcium (Lipitor) 20 mg PO HS [facility] Last Admin: 07/24/18 20:47 Dose: 20 mg Documented by: Enoxaparin Sodium (Lovenox) 40 mg SQ DAILY [facility] Last Admin: 07/25/18 09:12 Dose: 40 mg Documented by: Hydrocortisone Sodium Succinate (Solu-Cortef) 100 mg IV Q8 [facility] Last Admin: 07/25/18 13:27 Dose: 100 mg Documented by: Hydromorphone HCl (Dilaudid) 0.5 mg IV Q2HP PRN PRN Reason: PAIN LEVEL > 6 Melatonin (Melatonin 3mg Tablet) 3 mg PO HSP PRN PRN Reason: Insomnia Last Admin: 07/24/18 23:04 Dose: 3 mg Documented by: Naloxone HCl (Narcan) 0.1 mg IV Q2MIN PRN PRN Reason: Opiate Reversal Ondansetron HCl (Zofran) 4 mg IV Q4HP PRN PRN Reason: Nausea And Vomiting Oxycodone/Acetaminophen (Percocet 5-325 Mg) 1 tab PO Q4HP PRN PRN Reason: PAIN LEVEL 3-6 Last Admin: 07/25/18 14:56 Dose: 1 tab Documented by: Sodium Chloride (Saline Flush) 10 ml IV Q8 [facility] Last Admin: 07/25/18 13:27 Dose: 10 ml Documented by: Trazodone HCl (Desyrel) 50 mg PO HSP PRN PRN Reason: Insomnia Medical - PN: A/P - Time Spent With Patient Total time spent is greater than 50% in coordination of care (as documented) at patient's floor/unit and/or counseling patient: - Narrative A/P Narrative: A/P Femur Fracture/ wrist fracture: management per ortho Syncope-no events on tele, noted. Aortic stenosis- severe, monitor bp, and fluid dynamics closely, outpatient follow up with cardiology CHF- due to , IV lasix, gentle diuresis, monitor bp. hold off on vasodilators for now, bp is normal. HTN- resume home meds Asthma- no wheezing noted, bronchodilators for now. DVT enoxaparin DNR code status CArdiac diet Medical - PN: Qual - VTE Deep Vein Thrombosis/Pulmonary Embolism Present on Admission: No
[2018-07-25] MEDS: MELATONIN 3 MG TABLET PO PRN (21:57)
[2018-07-25] MEDS: ATORVASTATIN 20 MG TABLET PO SCH (21:57)
[2018-07-26] MEDS: IPRATROPIUM/ALBUTEROL 3 ML AMPUL.NEB NEB SCH ×2 (00:46→07:21)
[2018-07-26] MEDS: 0.9 % SODIUM CHLORIDE 10 ML SYRINGE IV SCH (05:11)
[2018-07-26] MEDS: HYDROCORTISONE SOD SUCC 100 MG VIAL IV SCH (05:11)
[2018-07-26] MEDS: oxyCODONE/APAP 5/325MG TABLET PO PRN ×2 (05:12→09:00)
[2018-07-26 05:20] LABS: Basophils # (Auto) 0 K/mcL (0.0-0.3); Basophils % (Auto) 0 % (0.0-2.0); Eosinophils # (Auto) 0 K/mcL (0.0-0.7); Eosinophils % (Auto) 0 % (0.0-7.0); Granulocytes % (Auto) 89.6 % (38.0-78.0); Lymphocytes # (Auto) 0.5 K/mcL (1.5-4.8); Lymphocytes % (Auto) 3.2 % (15.5-49.0); Mean Cell Volume 92.2 fL (80.0-100.0); Mean Corpuscular HGB Conc 33.2 g/dL (31.0-36.0); Monocytes # (Auto) 1.2 K/mcL (0.1-0.9); Monocytes % (Auto) 7.2 % (1.0-12.0); Platelet Count 367 K/mcL (140-440); RBC 3.11 M/mcL (4.00-5.20); Red Cell Distribution Width 15.2 % (11.5-14.5)
[2018-07-26 06:11] LABS: ALT/SGPT 22 U/l (0-40); Albumin/Globulin Ratio 1.2 (1.0-2.3); Alkaline Phosphatase 57 U/L (39-117); Bilirubin,Direct < 0.2 mg/dL (0.0-0.3); Blood Urea Nitrogen 14 mg/dl (8-23); Gamma Glutamyl Transpeptidase 9 U/L (5-36); Uric Acid 5.4 mg/dL (2.5-8.0)
--- NOTE | 2018-07-26 07:55 | Orthopedic Progress Note ---
Subjective Patient information: Note initiated : 07/26/18 at 7:53 am Service Date, if different from initiated Date: [] Patient: Greer Mueller 87 y/o F admitted on 07/23/18 for Fall, Right Hip Deformity, Right Wrist Pain. Chief Complaint: [S/P ORIF of right hip and wrist] Patient is sitting up in chair and pain is minimal. No particular complaints. She denies any new onset SOA, upper/lower extremity weakness, or calf tenderness. Principal diagnosis: Right intertrochanteric hip fx, right displaced distal radius fx Objective Vital signs: Vital Signs Temp Pulse Pulse Pulse Resp BP Pulse Ox 07/26/18 07:36 97.6 F 16 126/68 91 07/26/18 04:05 98.3 F 87 20 118/62 92 07/25/18 23:25 98.6 F 96 H 20 109/62 92 07/25/18 19:42 80 18 07/25/18 18:50 98.4 F 103 H 22 108/54 93 07/25/18 17:28 97.3 F 93 H 109/57 93 07/25/18 14:19 99.3 F H 62 24 H 118/59 93 07/25/18 11:11 98.6 F 66 24 H 110/59 94 07/25/18 09:13 89 97/55 95 07/25/18 07:54 98.7 F 80 24 H 112/65 96 Intake and Output 07/25/18 07/26/18 07/26/18 21:59 05:59 13:59 Intake Total 540 400 Output Total 1175 900 Balance -635 -500 Intake: Oral 240 400 GI Tube Flush 300 Output: Void Amount 1175 900 Other: Meal Dinner Percent of Meal Consumed 100% Feeding Ability Independent Urine Appearance Clear Clear Urine Color Straw Urine Odor Normal Weight 151 lb Intake & Output: Intake & Output 07/25/18 07/26/18 07/26/18 21:59 05:59 13:59 Intake Total 540 400 Output Total 1175 900 Balance -635 -500 Weight 151 lb Intake: Oral 240 400 GI Tube Flush 300 Output: Void Amount 1175 900 Other: Meal Dinner Percent of Meal Consumed 100% Feeding Ability Independent Urine Appearance Clear Clear Urine Color Straw Urine Odor Normal Incision: Yes clean and dry Incision clean and dry: Yes Dressing: Yes clean, Yes dry, Yes intact, Yes splint in place (wrist) Weight bearing status: non Neurological exam IM: Yes alert, Yes oriented X3, Yes motor sensory intact, Yes neurovascular intact Extremities exam IM: Yes calf tenderness (negative bilaterally), Yes Laura's sign (negative), Yes Foot pink and warm, Yes neurovascular intact - Labs CBC & BMP: 07/26/18 04:00 07/26/18 04:00 Labs: Orthopedic Labs 07/23/18 15:36 PT 13.1 INR 1.0 07/26/18 07/25/18 07/24/18 04:00 04:20 03:30 Hgb 9.5 L 9.8 L 10.9 L Hct 28.7 L 29.1 L 33.3 L 07/23/18 15:33 Hgb 13.3 Hct 40.3 Assessment and Plan (1) Hip fracture, right Toe-touch weight-bearing on the right lower extremity. May stand with PT. Use trough walker with standing/walking. Discharge to SNF today. Status: Acute Qualifiers: Encounter type: subsequent encounter Fracture type: closed (2) Wrist fracture, right No lifting, pushing, or pulling with the right upper extremity. Use trough walker if standing. Wear brace at all times. Discharge to SNF today. Status: Acute
[2018-07-26] MEDS ORDERED: TAMSULOSIN 0.4 MG CAPSULE PO ONE (08:02)
[2018-07-26] MEDS: ENOXAPARIN 40 MG/0.4 ML SYRINGE SQ SCH (08:46)
[2018-07-26] MEDS: ASPIRIN 81 MG TAB.CHEW CHEWED SCH (08:46)
--- NOTE | 2018-07-26 10:05 | Discharge Summary ---
Medical - DS: Prov Patient information: Note initiated : 07/26/18 at 9:57 am Service Date, if different from initiated Date: [] Patient: Greer Mueller 87 y/o F admitted on 07/23/18 for Fall, Right Hip Deformity, Right Wrist Pain. Chief Complaint: [] Date of admission: 07/23/18 21:18 Discharge date: 07/26/18 Primary care physician: Libby Hawthorne Consults: 07/23/18 Consult to Physician [CONS] Stat Comment: Consulting Provider: Bib Cheng Reason For Exam: right hip fx. Consult to Physician [CONS] Stat Comment: Consulting Provider: Patti Yeager Reason For Exam: Physician to Consult 07/23/18 20:00 Consult to Physician [CONS] Routine Comment: Consulting Provider: Bib Cheng Reason For Exam: Physician to Consult Discharging clinician: Patti Yeager Medical - DS: Meds - Discharge Medications Prescriptions: amLODIPine BESYLATE [Amlodipine Besylate] 5 mg PO DAILY #30 tab Aspirin [Children's Aspirin] 81 mg PO BID #60 tab.chew HYDROcodone/ACETAMINOPHEN [[place] 5-325 Tablet] 1 tab PO Q4-6HP PRN #60 tab PRN Reason: Pain Methocarbamol [Robaxin] 750 mg PO TIDP PRN #40 tab PRN Reason: Muscle Spasm predniSONE [Prednisone] 5 mg PO ONCE #100 tab Active and Home Medications: Home Medications Alendronate Sodium [Fosamax] 70 mg PO WEEKLY 07/23/18 [History Confirmed 07/23/18 Last Taken Unknown] Atorvastatin [Lipitor] 20 mg PO HS 07/23/18 [History Confirmed 07/23/18 Last Taken Unknown] Lisinopril [Zestril] 20 mg PO DAILY 07/23/18 [History Confirmed 07/23/18 Last T aken Unknown] amLODIPine [Norvasc] 10 mg PO DAILY 07/23/18 [History Confirmed 07/23/18 Last Taken Unknown] metFORMIN [Glucophage] 500 mg PO QAC 07/23/18 [History Confirmed 07/23/18 Last Taken Unknown] predniSONE [Prednisone] 5 mg PO ONCE 07/23/18 [History Confirmed 07/23/18 Last Taken Unknown] Aspirin [Children's Aspirin] 81 mg PO BID #60 tab.chew 07/25/18 [Rx Last Taken Unknown] HYDROcodone/ACETAMINOPHEN [[place] 5-325 Tablet] 1 tab PO Q4-6HP PRN #60 tab 07/26/18 [Rx Last Taken Unknown] Methocarbamol [Robaxin] 750 mg PO TIDP PRN #40 tab 07/26/18 [Rx Last Taken Unknown] Medical - DS: Hosp Hospital course: Ms. Mueller is a 87 year old F with h/o rheumatic heart disease, presents to the ER today after a fall. She notes she was standing at a care center where she was visiting a friend, she fell down spontaneously, not sure if if she passed out but does not think she lost consciousness. Leg just gave away. She fell on the right side, and developed pain on the right side of her hip as well as pain in the right wrist. She was brought to the emergency room for further evaluation The patient lost her a month ago, has been depressed since. She notes that she has been fairly active before this fall. Denies any chest pain denies any shortness of breath dizziness syncope or presyncopal-like episodes nausea vomiting abdominal pain bowel or bladder complaints. Recently she was at a function that she had to walk up 3 blocks, and she did not complain of any chest pain or shortness of breath or dizziness during this walk. Obviously she did walk slowly. The patient in the emergency room had no acute complaints except for pain. On presentation she was hemodynamically stable. Labs showed a hemoglobin of 13.3 platelets 473 INR 1.0 WBC 11,000, chemistry was unremarkable. X-ray of the wrist shows comminuted intra-articular fracture of the distal radius X-ray of the femur shows femur fracture moderate deformity on the right side Pelvis CT was negative for pelvis fractures Chest x-ray shows cardiomegaly and pulmonary vascular congestion EKG shows biatrial enlargement and left ventricular hypertrophy Echo done October 2017 shows severe aortic stenosis left ventricular ejection fraction of 75% patient also had mild aortic stenosis the patient has a history of mitral valve disease. Patient will be admitted to medicine, pt going to surgery from OR Preop risks reviewed with anesthesia and family, very high risk for perioperative mortality has been reviewed with the patient's daughter. The patient has aortic stenosis severe and has been progressively getting worse it seems. I am not 100% sure if the patient had syncope. [id number] ultrasound was done which showed that IVC collapse was 50% with inspiration. 07/24 P[t seen examine, no new complaints, s/p surgery, only pain when moves labs reviewed, wbc elevated but likely reactive monitor. 07/25 Patient seen and examined, overnight was short of breath, responded to Lasix. I started on IV hydrocortisone at stress doses for now. She remained stable This morning the patient was sitting in the chair, complained about pain at the site of surgery because she has been sitting in the chair for a long time breathing is much better Hold blood pressure medications her blood pressures in the lower end of randall 07/26 Pt seen examined, bp stable, off oxygen, no acute overnight issues Patient has no complaints stable for discharge We will hold lisinopril at the time of discharge, cut back on the dose of amlodipine She will go on a prednisone taper She may need further workup from her aortic valve prospective, can be followed up by her heavy equipment engine mechanic/PCP Discharge diagnosis: femur and wrist fracture - Time Spent with Patient Total time spent providing and/or coordinating discharge services: Greater than 30 minutes Medical - DS: Exam - Constitutional Vitals: Vital Signs Temp Pulse Pulse Pulse Resp BP Pulse Ox 07/26/18 07:36 97.6 F 16 126/68 91 07/26/18 04:05 98.3 F 87 20 118/62 92 07/25/18 23:25 98.6 F 96 H 20 109/62 92 07/25/18 19:42 80 18 07/25/18 18:50 98.4 F 103 H 22 108/54 93 07/25/18 17:28 97.3 F 93 H 109/57 93 07/25/18 14:19 99.3 F H 62 24 H 118/59 93 07/25/18 11:11 98.6 F 66 24 H 110/59 94 Intake and Output 07/25/18 07/26/18 07/26/18 21:59 05:59 13:59 Intake Total 540 400 Output Total 1175 900 Balance -635 -500 Intake: Oral 240 400 GI Tube Flush 300 Output: Void Amount 1175 900 Other: Meal Dinner Percent of Meal Consumed 100% Feeding Ability Independent Urine Appearance Clear Clear Urine Color Straw Urine Odor Normal Weight 151 lb Additional comments: Constitutional; Afebrile, cooperative, alert, not in distress. Respiratory system: Air Entry equal on both sides, No crackles or wheezing, no rhonchi. CVS- Rate rhythm regular, S1,S2 heard, no gallop, no rub. Abdomen- Soft nontender abdomen, no organomegaly, no tenderness, no guarding or rigidity, MICROWAVE SUPERVISOR- AOOx3, moving all extremities, no gross focal deficit noted. Medical - DS: Data Labs on day of discharge: Labs from last 24 hours 07/26/18 07/26/18 04:00 04:00 WBC 17.3 H RBC 3.11 L Hgb 9.5 L Hct 28.7 L MCV 92.2 MCH 30.6 MCHC 33.2 RDW 15.2 H Plt Count 367 MPV 9.4 Gran % 89.6 H Lymph % (Auto) 3.2 L Fleming % (Auto) 7.2 Eos % (Auto) 0 Baso % (Auto) 0 Gran # 15.5 H Lymph # (Auto) 0.5 L Fleming # (Auto) 1.2 H Eos # (Auto) 0 Baso # (Auto) 0 Sodium 139 Potassium 4.5 Chloride 104 Carbon Dioxide 28 Anion Gap 7.0 L BUN 14 Creatinine 0.6 GFR Calculation 83 Glucose 136 H Uric Acid 5.4 Calcium 8.5 L Phosphorus 2.5 L Magnesium 2.0 Total Bilirubin 0.4 Direct Bilirubin < 0.2 GGT 9 AST 50 H ALT 22 Alkaline Phosphatase 57 Lactate Dehydrogenase 338 H Total Protein 5.6 L Albumin 3.0 L Globulin 2.6 Albumin/Globulin Ratio 1.2 Triglycerides 67 Medical - DS: A/P - Patient/Caregiver Discharge Instructions Activity: as per physical therapy Diet: Cardiac Additional Instructions: Discharge Instructions: Keep patient TTWB to Right lower extremity and NWB to Right wrist. No therapy for right wrist. No dressing changes to Right wrist at this time. Discharge Instructions: You may start showering on post op day #2. Cover the right arm dressing. For Hip: change dressing to right hip daily with use of Xeroform gauze and dry dressing. To avoid constipation while taking any narcotic pain medication, take an over the counter stool softener/laxative. Use ice packs as directed, on for 20 minutes at a time throughout the day. This and elevation will help with pain and swelling. Call your physician for fevers above 100.5 or pain not controlled by medication. Your prescriptions are with your discharge information. Some medications were electronically transmitted to your pharmacy of choice. Take Aspirin twice daily, for 30 days, as prescribed to prevent blood clots (see medication list). Take prednisone 20mg (4tabs) x 3 days, then 15mg x 3 days, then 10mg x 3 days, then 5mg daily (chronic home dose) I have stopped the lisinopril for now, I have cut the dose of amlodipine from 10mg daily to 5mg daily, Titration of BP meds per PCP Follow up with your heavy equipment engine mechanic to further evaluate if your Aortic stenosis needs further interventions. Prescriptions: Aspirin [Children's Aspirin] 81 mg PO BID #60 tab.chew HYDROcodone/ACETAMINOPHEN [[place] 5-325 Tablet] 1 tab PO Q4-6HP PRN #60 tab PRN Reason: Pain Methocarbamol [Robaxin] 750 mg PO TIDP PRN #40 tab PRN Reason: Muscle Spasm Other Amb Orders: OT Discharge Order Location: None Selected Physical Therapy at Discharge - [facility] Location: None Selected Wound Care Instructions Location: None Selected - Follow up Plan Follow up with: Bib Cheng MD [Physician] - 08/06/18 (Please call/schedule surgical follow up to be seen 10-14 days post surgery. Surgery was .) Libby Hawthorne ARNP [Primary Care Provider] - Disposition: Xfer SNF Prognosis: Fair Rehab Potential: Fair I certify that the patient requires SNF services: Yes Overall status at discharge: patient is progressing back to baseline Medical - DS: Qual - VTE Deep Vein Thrombosis/Pulmonary Embolism Present on Admission: No
--- NOTE | 2018-08-07 05:50 | XRay Report ---
CLINICAL INFORMATION: ORIF severely comminuted subtrochanteric fracture right hip COMPARISON: Preoperative CT 07/23/2018 FINDINGS: Multiple digital images are submitted. Final image shows a severely comminuted subtrochanteric fracture of the right proximal femur reduced to anatomic alignment and transfixed by gamma nail and cerclage wire IMPRESSION: ORIF subtrochanteric region fracture right hip now in anatomic alignment Interpreted and Authenticated by: Aquilino Escalera 08/07/18
== END 2018-07-26 11:25 | DRG 481 ==
LOC: ED 14:40 → SUR 16:49 → ICU 21:18 → MEDSUR 07-24 15:30
PROVIDERS: ADMIT Internal Medicine; ATTEND Internal Medicine

== ENCOUNTER 2019-01-20 23:35 | Observation (INO) ==
[2019-01-20] MEDS ORDERED: IOPAMIDOL 100 ML BOTTLE IV ONE (23:36)
[2019-01-20] MEDS ORDERED: LACTATED RINGERS 1,000 ML IV ONE (23:56)
[2019-01-20] MEDS ORDERED: ONDANSETRON 4 MG/2 ML VIAL IV ONE (23:56)
[2019-01-21 00:08] LABS: POC Blood Urea Nitrogen 14 mg/dl (8-23); POC CO2 28 mmol/L (22-30); POC Calcium, Ionized 1.17 mmol/L (1.16-1.32); POC Chloride 101 mmol/L (96-108); POC Creatinine 0.6 mg/dl (0.6-1.1); POC Glucose, Random 129 mg/dL (70-105); POC Potassium 3.4 mmol/L (3.3-5.1); POC Sodium 140 mmol/L (133-145)
--- NOTE | 2019-01-21 00:19 | Emergency Department Note ---
Abdominal Pain HPI - General Chief Complaint: Abdominal Pain Stated Complaint: RLQ Abd pain Time Seen by Provider: 01/21/19 00:06 Mode of arrival: EMS - History of Present Illness HPI Narrative: Patient brought in by EMS with a chief complaint of abdominal pain, right lower quadrant. Started this afternoon, gradually worsening. No nausea vomiting or diarrhea. Has been having normal bowel movements up. No history of this pain before. No previous abdominal surgeries. Pain is not very severe infection is no pain when she is laying supine however when she moves around she can feel the pain in the right lower quadrant of the abdomen. No fevers or chills, no urinary symptoms. Has been well otherwise. Recent hip surgery in July of this year. - Related Data Home Medications Medication Instructions Recorded Confirmed Alendronate Sodium [Fosamax] 70 mg PO WEEKLY 07/23/18 01/20/19 Atorvastatin [Lipitor] 20 mg PO HS 07/23/18 01/20/19 metFORMIN [Glucophage] 500 mg PO [facility] 07/23/18 01/20/19 Previous Rx's Medication Instructions Recorded Aspirin [Children's Aspirin] 81 mg PO BID #60 tab.chew 07/25/18 amLODIPine BESYLATE [Amlodipine 5 mg PO DAILY #30 tab 07/26/18 Besylate] predniSONE [Prednisone] 5 mg PO ONCE #100 tab 07/26/18 Allergies Allergy/AdvReac Type Severity Reaction Status Date / Time codeine AdvReac Mild Nausea Verified 07/23/18 14:48 Review of Systems All systems ED: reviewed and negative except as stated. Abdominal Pain PMH - Past Medical History Attestation: Yes: The following information was validated with the patient. Medical history: Reports: hyperlipidemia, hypertension Surgical history ED: Reports: orthopedic, other Family history: Reports: no significant family history - Social History Smoking status: Never smoker Alcohol use: Reports: None Drug use: Reports: none Physical Exam Limitations: no limitations General appearance: alert, anxious, in no apparent distress Head: atraumatic, normocephalic Eye: Present: normal appearance, PERRL, EOMI. Absent: scleral icterus ENT: normal exam, normal oropharynx, mucous membranes moist Neck: Present: normal inspection, full ROM Chest: Present: normal inspection, symmetric chest wall rise Respiratory: Present: normal lung sounds bilaterally. Absent: respiratory distress, rales/crackles Cardiovascular: Present: regular rate, normal heart sounds Abdominal: Present: soft, tenderness, normal bowel sounds. Absent: distention, guarding, rebound, rigidity Abdominal tenderness: Present: wily umbilical Extremities: Present: normal inspection, full ROM Back: Present: normal inspection. Absent: CVA tenderness (R), CVA tenderness (L) Neurological: Present: alert, oriented X3, CN II-XII intact Psychiatric: Present: anxious Skin: Present: warm, dry, normal color Course Vital Signs Temperature 97.5 F 01/20/19 23:37 Pulse Rate 80 01/20/19 23:37 Respiratory Rate 22 01/20/19 23:37 Blood Pressure 81/66 01/20/19 23:37 Pulse Oximetry (%) 98 01/20/19 23:37 Temperature 97.5 F 01/20/19 23:37 Pulse Rate 73 01/21/19 02:46 Respiratory Rate 22 01/20/19 23:37 Blood Pressure 107/58 01/21/19 02:46 Pulse Oximetry (%) 91 01/21/19 02:46 Abdominal Pain - MDM Narrative Medical decision making narrative: It turns out on CT scan that she had a right inguinal hernia with some time and large bowel trapped within the hernia. On repalpation of the abdomen after obtaining the CT she does have some external fat and fatty tissue to the lower pelvis region. However I could feel the hernia after it was described on the CT scan and was able to manually reduce the hernia. This was with gentle pressure and I did hear some bowel sounds during reduction. Patient tolerated the procedure well. I did discuss this with Dr. Morrison and we will admit her for observation. Start her on Ancef and we will monitor labs. Initial admit orders verified. - Lab Data Lab results reviewed: Yes I reviewed the patient's lab results. Result diagrams: 01/20/19 23:56 01/20/19 23:56 Lab Results 01/20/19 01/20/19 01/21/19 Range/Units 23:56 23:56 01:08 WBC 13.0 H (4.5-11.0) K/mcL RBC 4.93 (4.00-5.20) M/mcL Hgb 13.8 (12.0-15.0) g/dL Hct 41.8 (36.0-48.0) % POC Hct 43.0 (36.0-48.0) % MCV 84.8 (80.0-100.0) fL MCH 28.1 (26.0-34.0) pg MCHC 33.1 (31.0-36.0) g/dL RDW 18.0 H (11.5-14.5) % Plt Count 516 H (140-440) K/mcL MPV 8.6 (7.4-10.4) fL Gran % 81.8 H (38.0-78.0) % Lymph % (Auto) 8.3 L (15.5-49.0) % [place] % (Auto) 8.3 (1.0-12.0) % Eos % (Auto) 1.2 (0.0-7.0) % Baso % (Auto) 0.4 (0.0-2.0) % Gran # 10.5 H (1.8-8.0) K/mcL Lymph # (Auto) 1.1 L (1.5-4.8) K/mcL [place] # (Auto) 1.1 H (0.1-0.9) K/mcL Eos # (Auto) 0.2 (0.0-0.7) K/mcL Baso # (Auto) 0.1 (0.0-0.3) K/mcL POC Sodium 140 (133-145) mmol/L Sodium 139 (133-145) mmol/L POC Potassium 3.4 (3.3-5.1) mmol/L Potassium 3.4 (3.3-5.1) mmol/L POC Chloride 101 (96-108) mmol/L Chloride 100 (96-108) mmol/L Carbon Dioxide 26 (22-30) mmol/L POC Total CO2 28 (22-30) mmol/L Anion Gap 13.0 (8-16) POC BUN 14 (8-23) mg/dl BUN 14 (8-23) mg/dl Creatinine 0.6 (0.6-1.1) mg/dl POC Creatinine 0.6 (0.6-1.1) mg/dl GFR Calculation 83 Glucose 129 H (70-105) mg/dL POC Glucose 129 H (70-105) mg/dL Calcium 9.1 (8.6-10.4) mg/dl POC WB Ioniz Calcium 1.17 (1.16-1.32) mmol/L Total Bilirubin 0.6 (0.0-1.0) mg/dL AST 21 (0-37) U/l ALT 14 (0-40) U/l Alkaline Phosphatase 103 (39-117) U/L C-Reactive Protein 0.4 (0.0-0.8) mg/dl Total Protein 7.4 (5.9-8.4) gm/dL Albumin 4.1 (3.2-5.2) gm/dL Globulin 3.3 (2.2-3.7) gm/dL Albumin/Globulin Ratio 1.2 (1.0-2.3) Amylase 72 (28-100) U/L Lipase 22 (7-60) U/L Urine Color Yellow Urine Appearance Hazy Urine pH 7.0 (5.0-9.0) Ur Specific [place] 1.016 (1.000-1.035) Urine Protein Neg (NEG) mg/dL Urine Glucose (UA) Negative (NEG) mg/dL Urine Ketones Neg (NEG) mg/dL Urine Occult Blood Neg (<0.03) mg/dL Urine Nitrate Neg (NEG) Urine Bilirubin Neg (NEG) mg/dL Urine Urobilinogen Neg (NEG) mg/dL Ur Leukocyte Esterase Neg (NEG) /uL Ur Culture Indicated? No Disposition Pt seen by MARKETING COMMUNICATIONS LEADER/PA only: No Clinical Impression: Inguinal hernia of right side with obstruction Disposition: Xfer As Outpt/Obs ([facility]) Condition: Fair Referrals: Libby Hawthorne ARNP [Primary Care Provider] -
[2019-01-21] MEDS ORDERED: ACETAMINOPHEN 325 MG TABLET PO ONE (00:21)
[2019-01-21] MEDS ORDERED: IBUPROFEN 600 MG TABLET PO ONE (00:21)
[2019-01-21 00:40] LABS: Basophils # (Auto) 0.1 K/mcL (0.0-0.3); Basophils % (Auto) 0.4 % (0.0-2.0); Eosinophils # (Auto) 0.2 K/mcL (0.0-0.7); Eosinophils % (Auto) 1.2 % (0.0-7.0); Granulocytes % (Auto) 81.8 % (38.0-78.0); Hematocrit 41.8 % (36.0-48.0); Hemoglobin 13.8 g/dL (12.0-15.0); Lymphocytes # (Auto) 1.1 K/mcL (1.5-4.8); Lymphocytes % (Auto) 8.3 % (15.5-49.0); Mean Cell Volume 84.8 fL (80.0-100.0); Mean Corpuscular HGB Conc 33.1 g/dL (31.0-36.0); Mean Platelet Volume 8.6 fL (7.4-10.4); Monocytes # (Auto) 1.1 K/mcL (0.1-0.9); Monocytes % (Auto) 8.3 % (1.0-12.0); Platelet Count 516 K/mcL (140-440); RBC 4.93 M/mcL (4.00-5.20)
[2019-01-21 00:54] LABS: ALT/SGPT 14 U/l (0-40); AST/SGOT 21 U/l (0-37); Albumin 4.1 gm/dL (3.2-5.2); Albumin/Globulin Ratio 1.2 (1.0-2.3); Alkaline Phosphatase 103 U/L (39-117); Amylase 72 U/L (28-100); Bilirubin,Total 0.6 mg/dL (0.0-1.0); Blood Urea Nitrogen 14 mg/dl (8-23); C-Reactive Protein 0.4 mg/dl (0.0-0.8); Calcium 9.1 mg/dl (8.6-10.4); Carbon Dioxide 26 mmol/L (22-30); Chloride 100 mmol/L (96-108); Globulin 3.3 gm/dL (2.2-3.7); Glomerular Filtration Rate 83; Glucose 129 mg/dL (70-105)
[2019-01-21 01:48] LABS: Appearance,Urine HAZY; Bilirubin,Urine NEG (NEG); Color,Urine YELLOW; Culture Indicated,Urine NO; Glucose,Urine (UA) NEGATIVE (NEG); Ketones,Urine NEG (NEG); Leukocyte Esterase,Urine NEG /uL (NEG); Nitrate,Urine NEG (NEG); Protein,Urine NEG (NEG); Specific Gravity,Urine 1.016 (1.000-1.035); Urine Blood NEG mg/dL (<0.03); Urobilinogen,Urine NEG (NEG)
[2019-01-21] MEDS ORDERED: NALOXONE HCL 0.4 MG/ML VIAL IV PRN (03:04)
[2019-01-21] MEDS ORDERED: ONDANSETRON 4 MG/2 ML VIAL IV PRN (03:36)
[2019-01-21] MEDS ORDERED: ceFAZolin 1 GM VIAL ONE (04:14)
[2019-01-21] MEDS: LACTATED RINGERS 1,000 ML IV SCH ×2 (04:24→10:27)
[2019-01-21] MEDS: ceFAZolin 2 GM in DEXTROSE 5% IN WATER 50 ML IV SCH ×2 (04:56→12:32)
--- NOTE | 2019-01-21 08:03 | Cat Scan Report ---
History: Right lower quadrant pain TECHNIQUE: The patient was imaged following intravenous but no oral contrast scanning during the arterial phase and delayed excretory phase from the diaphragm to the symphysis pubis. Sagittal and coronal reformats were created. The radiation exposure was limited using dose reduction technology. FINDINGS: There is mild to moderate interstitial pulmonary fibrosis in both lower lobes. Heart is moderately enlarged. There is a small hiatus hernia. Liver is normal in size. There are few scattered simple cysts in the right lobe. There is no evidence of liver mass and the bile ducts are nondilated. The spleen is normal in size and homogeneous. The pancreas is normal without evidence of mass or inflammation. There are no stones within the gallbladder and the bile ducts are nondilated. The adrenals are normal. There are couple simple cysts in the left kidney. Largest measures 2 cm. The right kidney is normal. There is no mass, calculus or hydronephrosis in either kidney. The aorta is normal in caliber. There is a moderate amount of plaque in the distal aorta and iliac arteries. The uterus and ovaries are atrophic. Urinary bladder is unopacified but appears grossly normal. The patient has a right inguinal hernia measuring 4 x 6 cm in size. There is an entrapped segment of bowel within the hernia sac. The wall of the intestine within the hernia is thickened. This may contain both a segment of the transverse colon and small bowel. Patient has a mobile cecum. The cecum and proximal transverse colon are mildly distended with gas. The distal colon is decompressed and there are numerous diverticula in the sigmoid colon. There is no evidence of acute diverticulitis. The appendix is noninflamed. No ascites, adenopathy, mass or free air are present within the abdomen or pelvis. There is moderately severe degenerative disc disease at L5-S1. IMPRESSION: Right inguinal hernia containing an entrapped segment of large and small bowel. There is edema or ischemia of the bowel wall within this hernia. Sigmoid diverticulosis Simple cysts in the liver and left kidney Interpreted and Authenticated by: Rishabh Kwon 01/21/19
--- NOTE | 2019-01-21 11:26 | General Surg History&Physical ---
History of Present Illness Patient information: Note initiated : 01/21/19 at 11:23 am Service Date, if different from initiated Date: [] Patient: Greer Mueller a 88 y/o F admitted on 01/21/19 for RLQ Abd Pain. Chief Complaint: [] HPI: Ms. Mueller is a 88 year old F admitted with right inguinal hernia with partial intestinal obstruction. The patient had a few hour history of pain in the right abdomen. She was transported to the emergency room by EMS. Evaluation revealed a large right inguinal hernia with colon and small bowel loops tightly adherent hernia with evidence of edema of the bowel wall. The emergency room physician was able to reduce the hernia and the patient was admitted for consideration of hernia repair to prevent recurrence. The patient, however, states that now that she is feeling better. She does not wish to have any abdominal surgery. She is advised of the high potential recurrence in her responses that she will address it at that time. She is otherwise stable and plans will be made for discharge. Review of Systems All systems PM: reviewed and no additional remarkable complaints except as stated (except as noted below) - Constitutional frequent falls, malaise, weakness - EENT Nose, mouth and throat: abnormal hearing, vertigo - Cardiovascular dyspnea on exertion, palpatations, syncope - Respiratory no cough, no dyspnea on exertion, no wheezing - Gastrointestinal abdominal pain, nausea, no vomiting - Musculoskeletal abnormal gait, arthralgias, myalgias, stiffness - Integumentary no new lesions, no pruritus, no rash - Neurological abnormal hearing, no paresthesias, no tremor(s), no vertigo, no weakness - Psychiatric anxiety, depression (due to unresolved grief) - Hematologic/Lymphatic no easy bleeding, no easy bruising, no lymphadenopathy - Allergic/Immunologic no tongue swelling, no throat swelling, no uticaria, no wheezing, no lip swelling Past History Past medical history: History of rheumatic heart disease. Depression with unresolved grief. Hypertension Past surgical history: OTIF right femur OTIF left wrist Past family history: Patient is not quite sure of the answers to these questions Past social history: Never smoker. Denies alcohol use. Denies drug use Medications and Allergies Home Medications Medication Instructions Recorded Confirmed Type Alendronate Sodium [Fosamax] 70 mg PO WEEKLY 07/23/18 01/21/19 History Atorvastatin [Lipitor] 20 mg PO HS 07/23/18 01/21/19 History metFORMIN [Glucophage] 500 mg PO [facility] 07/23/18 01/21/19 History Aspirin [Children's Aspirin] 81 mg PO BID #60 tab.chew 07/25/18 01/21/19 Rx Lisinopril [Zestril] 20 mg PO DAILY 01/21/19 01/21/19 History amLODIPine [Norvasc] 10 mg PO DAILY 01/21/19 01/21/19 History predniSONE [Prednisone] 5 mg PO DAILY 01/21/19 01/21/19 History Allergies Allergy/AdvReac Type Severity Reaction Status Date / Time codeine AdvReac Mild Nausea Verified 07/23/18 14:48 Exam Temp Pulse Resp BP Pulse Ox 98 F 86 18 101/52 95 01/21/19 06:49 01/21/19 08:00 01/21/19 08:00 01/21/19 06:49 01/21/19 08:00 - General physical appearance well developed, well nourished, no distress, no pain - Eyes PERRL, normal ocular movement - ENT normal pinna, normal nares, normal mucosa, no hearing loss, no congestion - Head Head exam IM: Present: atraumatic, normocephalic - Neck no masses, no bruits, trachea midline, no lymphadenopathy, no venous distension - Cardiovascular Cardiovascular exam IM: Present: normal rate and rhythm, systolic murmur (heard over entire precordium; holosystolic) Intensity IM: 3/6 - Respiratory normal expansion, normal respiratory effort, clear to percussion, clear to auscultation - Abdomen Abdomen: Present: soft, non tender, bowel sounds, distended (mild distention but no tenderness; good active bowel sounds) Hernia: Present: none, inguinal (reducible right inguinal hernia with mild tenderness but no palpable substance in hernia sac) - Genitourinary Present: normal external genitalia - Integumentary Present: no rash, no growths, no abnormal pigmentation - Neurologic Present: normal coordination, normal sensation - Musculoskeletal Present: normal gait, normal posture - Psychiatric Present: oriented to time, oriented to person, oriented to place, speech is normal, memory intact Assessment and Plan (1) Inguinal hernia of right side with obstruction Patient is advised to have inguinal hernia repair, but she vehemently states that she does not wish to have surgery and will wait to address surgery if she should develop more symptoms. She wishes to be discharged. Status: Acute (2) Hypertension Status: Acute
== END 2019-01-21 13:20 | disposition home or self-care (01) ==
LOC: MEDSUR 23:35 → ED 23:35 → MEDSUR 01-21 04:02
PROVIDERS: ADMIT Family Medicine Adult Medicine; ATTEND Family Medicine Adult Medicine

== ENCOUNTER 2021-03-20 13:04 | Inpatient (IN) ==
[2021-03-20] MEDS ORDERED: IPRATROPIUM/ALBUTEROL 3 ML AMPUL.NEB NEB ONE (13:11)
--- NOTE | 2021-03-20 13:34 | Emergency Department Note ---
HPI General Chief complaint: Shortness of Breath/Dyspnea Stated complaint: SOB Time Seen by Provider: 03/20/21 13:09 Source: patient Mode of arrival: wheelchair Limitations: no limitations History of Present Illness HPI Narrative: Narrative: Patient presents emergency department for evaluation of shortness of breath. She has 1 week history of shortness of breath. shelter reported history of COPD however I do not see any medications related to this on her medication list, she is non-smoker, she reports no prior history of this. She does have a history of aortic stenosis and CHF. She denies chest pain. No fever or cough. Not normally on oxygen however [facility] patient on oxygen earlier this week. No other complaints. Related Data Home Medications Medication Instructions Recorded Confirmed alendronate 70 mg PO WEEKLY 07/23/18 03/20/21 atorvastatin 20 mg PO HS 07/23/18 03/20/21 metformin 500 mg PO [facility] 07/23/18 03/20/21 amlodipine 10 mg PO DAILY 01/21/19 03/20/21 lisinopril 20 mg PO DAILY 01/21/19 03/20/21 prednisone 5 mg PO DAILY 01/21/19 03/20/21 Antacid (calcium carbonate) 500 mg PO BID 03/20/21 03/20/21 acetaminophen 500 mg PO Q4HP PRN 03/20/21 03/20/21 celecoxib 200 mg PO DAILY 03/20/21 03/20/21 cholecalciferol (vitamin D3) 50 mcg PO QDAY 03/20/21 03/20/21 furosemide 20 mg PO DAILY 03/20/21 03/20/21 gabapentin 300 mg PO BID 03/20/21 03/20/21 ibuprofen 400 mg PO Q6H 03/20/21 03/20/21 magnesium hydroxide [Milk of 400 mg PO DAILY PRN 03/20/21 03/20/21 Magnesia] methocarbamol 750 mg PO TID PRN 03/20/21 03/23/21 oxycodone 5 mg PO Q6H PRN 03/20/21 03/20/21 potassium chloride 20 meq PO DAILY 03/20/21 03/20/21 Previous Rx's Medication Instructions Recorded aspirin 81 mg PO BID #60 tab.chew 07/25/18 Allergies Allergy/AdvReac Type Severity Reaction Status Date / Time lansoprazole [From Prevacid] Allergy Unknown Unknown Verified 03/20/21 13:05 Penicillins Allergy Unknown Unknown Verified 03/23/21 06:50 codeine AdvReac Mild Nausea Verified 03/23/21 06:50 Review of Systems ROS ROS Narrative: Narrative: As above, all other system reviewed and negative. [facility] Narrative Patient History Narrative: Narrative: Reviewed Medical/Surgical/Family History All Active Problems (Updated 03/20/21 @ 16:16 by Octavio Moreno MD) Benign paroxysmal positional vertigo (Acute) Back pain (Acute) CHF exacerbation (Acute) Hypoxia (Acute) Acute exacerbation of CHF (congestive heart failure) (Acute) Influenza (Acute) History of hip surgery (Chronic ~2019) History of cataract extraction (Chronic ~2015) Skin cancer (Chronic) Asthma (Chronic) Abnormal blood sugar (Chronic) Thrombocytosis (Chronic) 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 (Chronic) Other alf (current) drug therapy (Chronic) Hyperlipidemia (Chronic) Aortic stenosis (Chronic) Acute on chronic diastolic (congestive) heart failure (Chronic) Pain in thoracic spine (Chronic) History of surgery (Chronic) UTI (urinary tract infection) (Chronic) Right inguinal hernia (Chronic) Abdominal pain (Chronic) Ileus (Chronic) Hypertension (Chronic) Inguinal hernia of right side with obstruction (Chronic) Wrist fracture, right (Chronic) Hip fracture, right (Chronic) Fall (Chronic) Medical History Abdominal pain Abnormal blood sugar Acute on chronic diastolic (congestive) heart failure Aortic stenosis Asthma Fall Hip fracture, right Hyperlipidemia Hypertension Ileus Inguinal hernia of right side with obstruction 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 Pain in thoracic spine Right inguinal hernia Skin cancer left lower jaw Thrombocytosis UTI (urinary tract infection) Wrist fracture, right Surgical History History of cataract extraction (~2015) History of hip surgery (~2019) right History of surgery right femur and left wrist Family History Father Heart attack Mother Heart problem Grandmother Leukemia Aunt Cancer Son Gout Social History Smoking Status: Never smoker Alcohol Intake Frequency: does not drink Substance Use: does not use Exam Narrative Narrative: Narrative: Heart rate 6 6 respirations 20 temperature 96.8 O2 sat 93% General Limitations: no limitations Head Head: Present atraumatic, normocephalic and normal inspection Eye Eye: Present normal appearance, PERRL and EOMI ENT ENT: Present normal exam Neck Neck: Present normal inspection Respiratory Respiratory: Absent respiratory distress Extremities Extremities: Present normal inspection Neurological Neurological: Present alert and CN II-XII intact; Absent motor sensory deficit Psychiatric Psychiatric: Present normal affect and normal mood Skin Skin: Present warm (WNL) and dry Course Vital Signs Vital signs: Vital Signs Temperature 96.8 F L 03/20/21 13:05 Pulse Rate 66 03/20/21 13:05 Respiratory Rate 20 03/20/21 13:05 Pulse Oximetry (%) 93 03/20/21 13:05 Temperature 95.6 F L 03/23/21 18:20 Pulse Rate 0 L 03/23/21 22:10 Respiratory Rate 6 L 03/23/21 18:20 Blood Pressure 48/37 03/23/21 18:20 Pulse Oximetry (%) 57 L 03/23/21 18:20 MDM MDM Narrative Medical decision making narrative: Narrative: EKG showed sinus rhythm, no acute ischemic changes, no significant change compared to prior EKG. Labs reviewed as per the electronic medical record. Chest x-ray is reviewed with Dr. Kwon on-call radiologist and appears consistent with CHF or widespread pneumonia. Patient denies cough. She has an elevated white blood cell count and tested positive for influenza B. She is given Lasix and placed on BiPAP. I spoke with the on-call hospitalist. Case reviewed in detail over the phone. Hospitalist agreed with admission. Discussed findings with the patient and the family. Their questions were answered. They are agreeable with the plan. Lab Data Result diagrams: 03/21/21 05:44 03/23/21 05:28 Labs: Lab Results 03/20/21 03/20/21 03/20/21 Range/Units 13:28 13:28 13:28 WBC 13.5 H (4.5-11.0) K/mcL RBC 4.84 (3.59-5.38) M/mcL Hgb 13.6 (11.2-15.7) g/dL Hct 43.1 (34.1-44.9) % MCV 89.0 (80.0-100.0) fL MCH 28.1 (26.0-34.0) pg MCHC 31.6 (31.0-36.0) g/dL RDW 15.3 H (11.5-14.5) % Plt Count 431 (140-440) K/mcL MPV 10.7 H (7.4-10.4) fL Neut % (Auto) 92.6 H (38.0-78.0) % Lymph % (Auto) 1.9 L (15.5-49.0) % [place] % (Auto) 4.8 (1.0-12.0) % Eos % (Auto) 0.2 (0.0-7.0) % Baso % (Auto) 0.5 (0.0-2.0) % Lymph # (Auto) 0.26 L (1.50-4.80) K/mcL [place] # (Auto) 0.65 (0.10-0.90) K/mcL Eos # (Auto) 0.03 (0.00-0.70) K/mcL Baso # (Auto) 0.07 (0.00-0.30) K/mcL Absolute Neutrophils 12.49 H (1.80-8.00) K/mcL Sodium 140 139 (133-145) mmol/L Potassium 4.4 4.4 (3.3-5.1) mmol/L Chloride 101 100 (96-108) mmol/L Carbon Dioxide 26 24 (22-30) mmol/L Anion Gap 13.0 15.0 (8.0-16.0) BUN 21 22 (8-23) mg/dL Creatinine 0.7 0.7 (0.6-1.1) mg/dL GFR Calculation 77 77 Glucose 113 H 109 H (70-105) mg/dL Uric Acid 5.9 (2.5-8.0) mg/dL Calcium 9.6 9.7 (8.6-10.4) mg/dL Phosphorus 3.9 (2.5-4.5) mg/dL Magnesium 1.8 (1.6-2.5) mg/dL Total Bilirubin 0.8 0.9 (0.1-1.0) mg/dL Direct Bilirubin 0.3 H (<0.3) mg/dL GGT 32 (5-36) U/L AST 37 H 36 H (<32) U/L ALT 29 29 (<40) U/L Alkaline Phosphatase 105 100 (39-117) U/L Lactate Dehydrogenase 319 H (135-225) U/L Troponin T (<0.03) ng/mL NT-Pro-B Natriuret Pep 12314.0 H (<450.0) pg/mL Total Protein 6.8 7.0 (5.9-8.4) gm/dL Albumin 4.2 4.1 (3.2-5.2) gm/dL Globulin 2.6 2.9 (2.2-3.7) gm/dL Albumin/Globulin Ratio 1.6 1.4 (1.0-2.3) Triglycerides 80 (<150) mg/dL 03/20/21 Range/Units 13:28 WBC (4.5-11.0) K/mcL RBC (3.59-5.38) M/mcL Hgb (11.2-15.7) g/dL Hct (34.1-44.9) % MCV (80.0-100.0) fL MCH (26.0-34.0) pg MCHC (31.0-36.0) g/dL RDW (11.5-14.5) % Plt Count (140-440) K/mcL MPV (7.4-10.4) fL Neut % (Auto) (38.0-78.0) % Lymph % (Auto) (15.5-49.0) % [place] % (Auto) (1.0-12.0) % Eos % (Auto) (0.0-7.0) % Baso % (Auto) (0.0-2.0) % Lymph # (Auto) (1.50-4.80) K/mcL [place] # (Auto) (0.10-0.90) K/mcL Eos # (Auto) (0.00-0.70) K/mcL Baso # (Auto) (0.00-0.30) K/mcL Absolute Neutrophils (1.80-8.00) K/mcL Sodium (133-145) mmol/L Potassium (3.3-5.1) mmol/L Chloride (96-108) mmol/L Carbon Dioxide (22-30) mmol/L Anion Gap (8.0-16.0) BUN (8-23) mg/dL Creatinine (0.6-1.1) mg/dL GFR Calculation Glucose (70-105) mg/dL Uric Acid (2.5-8.0) mg/dL Calcium (8.6-10.4) mg/dL Phosphorus (2.5-4.5) mg/dL Magnesium (1.6-2.5) mg/dL Total Bilirubin (0.1-1.0) mg/dL Direct Bilirubin (<0.3) mg/dL GGT (5-36) U/L AST (<32) U/L ALT (<40) U/L Alkaline Phosphatase (39-117) U/L Lactate Dehydrogenase (135-225) U/L Troponin T 0.03 H (<0.03) ng/mL NT-Pro-B Natriuret Pep (<450.0) pg/mL Total Protein (5.9-8.4) gm/dL Albumin (3.2-5.2) gm/dL Globulin (2.2-3.7) gm/dL Albumin/Globulin Ratio (1.0-2.3) Triglycerides (<150) mg/dL ED POC Tests ED POC Tests: [facility] - Influenza A Negative [facility] - Influenza B Positive [facility] - SARS Antigen Negative Discharge Plan Patient/Caregiver Discharge Instructions Pt seen by CLIENT RELATIONSHIP EXECUTIVE/PA only: No Clinical Impression: Acute exacerbation of CHF (congestive heart failure), Influenza Patient Disposition: Xfer As Inpt ([facility]) Discharge Date/Time: 03/20/21 17:34
[2021-03-20 14:03] LABS: Basophils # (Auto) 0.07 K/mcL (0.00-0.30); Basophils % (Auto) 0.5 % (0.0-2.0); Eosinophils # (Auto) 0.03 K/mcL (0.00-0.70); Eosinophils % (Auto) 0.2 % (0.0-7.0); Hematocrit 43.1 % (34.1-44.9); Hemoglobin 13.6 g/dL (11.2-15.7); Lymphocytes # (Auto) 0.26 K/mcL (1.50-4.80); Lymphocytes % (Auto) 1.9 % (15.5-49.0); Mean Corpuscular HGB Conc 31.6 g/dL (31.0-36.0); Mean Platelet Volume 10.7 fL (7.4-10.4); Monocytes # (Auto) 0.65 K/mcL (0.10-0.90); Monocytes % (Auto) 4.8 % (1.0-12.0); Neutrophils % (Auto) 92.6 % (38.0-78.0); Platelet Count 431 K/mcL (140-440); RBC 4.84 M/mcL (3.59-5.38); Red Cell Distribution Width 15.3 % (11.5-14.5); WBC 13.5 K/mcL (4.5-11.0)
[2021-03-20 14:28] LABS: ALT/SGPT 29 U/L (<40); AST/SGOT 37 U/L (<32); Albumin 4.2 gm/dL (3.2-5.2); Albumin/Globulin Ratio 1.6 (1.0-2.3); Alkaline Phosphatase 105 U/L (39-117); Bilirubin,Total 0.8 mg/dL (0.1-1.0); Blood Urea Nitrogen 21 mg/dL (8-23); Calcium 9.6 mg/dL (8.6-10.4); Carbon Dioxide 26 mmol/L (22-30); Chloride 101 mmol/L (96-108); Globulin 2.6 gm/dL (2.2-3.7); Glomerular Filtration Rate 77; Glucose 113 mg/dL (70-105)
[2021-03-20] MEDS ORDERED: FUROSEMIDE 40 MG/4 ML VIAL IV ONE (14:44)
--- NOTE | 2021-03-20 15:56 | Internal Med History&Physical ---
HPI History of Present Illness Patient information: Note initiated : 03/20/21 at 3:43 pm Service Date, if different from initiated Date: [] Patient: Greer Mueller 89 y/o F admitted on for Shortness of breath. Chief Complaint: [] History of present illness: Ms. Mueller is a 89 year old female with a history of hypertension, type 2 diabetes mellitus, congestive heart failure, severe aortic stenosis, dementia who resides in a long-term facility presented to the emergency department for shortness of breath. The patient had presented to the ED several days earlier for the same symptoms but discharged back to the SNF given her goals of care and DNR status. Patient was given IV Lasix followed by documented good urinary output response, home oral Lasi. She had a new oxygen requirement of about 2 L/min nasal cannula per review of available documents. Patient presents now with more dyspnea, chest x-ray is consistent with congestive heart failure. Hospital medicine was asked to admit the patient for acute on chronic congestive heart failure. Review of her past medical records and echocardiogram reports indicate that the patient has diastolic heart failure at baseline as well as severe aortic stenosis. The patient has been evaluated for TAVR in the past but he denied any intervention when she was a candidate. The patient is likely no longer a candidate given her severe dementia. Review of systems Constitutional: no fever, fatigue, or weight loss Eyes: no vision changes or pain Cardiovascular: no chest pain, no palpitations Respiratory: Positive for dyspnea, no cough Gastrointestinal: no abdominal pain, no nausea, vomiting, or diarrhea Genitourinary: no dysuria or difficulty voiding Musculoskeletal: no arthralgia or myalgia Integumentary: no skin lesion or wound Neurological: no focal weakness or numbness Psychiatric: no anxiety or depression Physical exam Head: Atraumatic, normal inspection. Eyes: normal appearance, no scleral icterus. Neck: full ROM Respiratory: Nasal cannula oxygen supplementation, accessory respiratory muscle use, tachypnea, bilateral rales. Cardiovascular: normal rate and rhythm, distant heart sounds. GI/Abdominal: soft, nontender, no guarding. Extremities: full range of motion, nontender, mild bilateral pedal edema Neurological: CN II-XII intact, intact motor, intact sensation. Psychiatric: normal mood. 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) Hyperlipidemia (Chronic) Aortic stenosis (Chronic) Acute on chronic diastolic (congestive) heart failure (Chronic) Pain in thoracic spine (Chronic) History of surgery (Chronic) UTI (urinary tract infection) (Chronic) Right inguinal hernia (Chronic) Abdominal pain (Chronic) Ileus (Chronic) Hypertension (Chronic) Inguinal hernia of right side with obstruction (Chronic) Wrist fracture, right (Chronic) Hip fracture, right (Chronic) Fall (Chronic) Medical History Abdominal pain Abnormal blood sugar Acute on chronic diastolic (congestive) heart failure Aortic stenosis Asthma Fall Hip fracture, right Hyperlipidemia Hypertension Ileus Inguinal hernia of right side with obstruction 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 Pain in thoracic spine Right inguinal hernia Skin cancer left lower jaw Thrombocytosis UTI (urinary tract infection) Wrist fracture, right Surgical History History of cataract extraction (~2015) History of hip surgery (~2019) right History of surgery right femur and left wrist Family History Father Heart attack Mother Heart problem Grandmother Leukemia Aunt Cancer Son Gout Social History (Updated 05/15/20 @ 14:01 by Jesusita Suárez) marital status: occupational status: retired alcohol intake frequency: does not drink substance use type: does not use MEDS/ALLERGIES Home Medications and Allergies Home Medications Medication Instructions Recorded Confirmed Type alendronate 70 mg PO WEEKLY 07/23/18 05/18/20 History atorvastatin 20 mg PO HS 07/23/18 05/18/20 History metformin 500 mg PO [facility] 07/23/18 05/18/20 History aspirin 81 mg PO BID #60 tab.chew 07/25/18 05/18/20 Rx amlodipine 10 mg PO DAILY 01/21/19 05/18/20 History lisinopril 20 mg PO DAILY 01/21/19 05/18/20 History prednisone 5 mg PO DAILY 01/21/19 05/18/20 History ciprofloxacin HCl 500 mg PO BID #14 tab 12/03/19 05/18/20 Rx hydrocodone 10 mg-acetaminophen 1 tab PO Q6H #45 tab 05/19/20 Rx 325 mg tablet meclizine 12.5 mg PO TID PRN #14 tab 09/22/20 Rx prochlorperazine maleate 5 mg PO BID PRN #14 tab 09/22/20 Rx [Compazine] Allergies Allergy/AdvReac Type Severity Reaction Status Date / Time codeine Allergy Mild Nausea Verified 03/20/21 13:05 Penicillins Allergy Mild Unknown Verified 03/20/21 13:05 lansoprazole [From Prevacid] Allergy Unknown Unknown Verified 03/20/21 13:05 EXAM Constitutional Vitals: Temp Pulse Resp BP Pulse Ox 96.8 F L 92 H 21 117/70 90 03/20/21 14:52 03/20/21 14:52 03/20/21 14:52 03/20/21 14:52 03/20/21 14:52 DATA Data Completed and Pending Labs: Labs from last 24 hours 03/20/21 03/20/21 13:28 13:28 WBC 13.5 H RBC 4.84 Hgb 13.6 Hct 43.1 MCV 89.0 MCH 28.1 MCHC 31.6 RDW 15.3 H Plt Count 431 MPV 10.7 H Neut % (Auto) 92.6 H Lymph % (Auto) 1.9 L [place] % (Auto) 4.8 Eos % (Auto) 0.2 Baso % (Auto) 0.5 Lymph # (Auto) 0.26 L [place] # (Auto) 0.65 Eos # (Auto) 0.03 Baso # (Auto) 0.07 Absolute Neutrophils 12.49 H Sodium 140 Potassium 4.4 Chloride 101 Carbon Dioxide 26 Anion Gap 13.0 BUN 21 Creatinine 0.7 GFR Calculation 77 Glucose 113 H Calcium 9.6 Total Bilirubin 0.8 AST 37 H ALT 29 Alkaline Phosphatase 105 NT-Pro-B Natriuret Pep 69243.0 H Total Protein 6.8 Albumin 4.2 Globulin 2.6 Albumin/Globulin Ratio 1.6 A/P Narrative A/P Narrative: Assessment: 89 year old female with a history of hypertension, type 2 diabetes mellitus, congestive heart failure, severe aortic stenosis, dementia who resides in a long-term facility now admitted for acute on chronic diastolic heart failure. #Acute hypoxic respiratory failure #Acute on chronic diastolic heart failure #Severe aortic stenosis #Type 2 diabetes mellitus #Hypertension #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 #Dementia Plan -Oxygen supplementation, pulse oximetry. -Lasix 40 mg IV BID. -Follow urine output, daily weight. -Follow renal function, electrolytes. -SSI-low, hold home metformin for now. -Home medication reconciliation, resume essential meds. -ECHO -library monitor -BiPAP trial to reduce preload. -Delirium mitigation. -DVT ppx: Lovenox -Code status: DNR, confirmed with daughter -Disposition: probably back to SNF when stable Time Spent With Patient Time: Total time spent is greater than 50% in coordination of care (as documented) at patient's floor/unit and/or counseling patient:
--- NOTE | 2021-03-20 16:09 | XRay Report ---
HISTORY: FINDINGS: Severe diffuse alveolar opacities are present throughout both lungs. There are superimposed small pleural effusions. The heart is severely enlarged. The heart has increased in size since 03/16/21 and the alveolar opacities have become worse. IMPRESSION: Worsening cardiomegaly and pulmonary edema. Superimposed pneumonia cannot be excluded. Dr. Moreno was called with the report Interpreted and Authenticated by: Rishabh Kwon 03/20/21
[2021-03-20] MEDS ORDERED: SENNOSIDES 1 TABLET PO PRN (17:41)
[2021-03-20] MEDS ORDERED: LACTULOSE 20 GM/30 ML ORAL.SOL PO PRN (17:41)
[2021-03-20] MEDS ORDERED: DEXTROSE 50% 50 ML VIAL IV PRN (17:41)
[2021-03-20] MEDS ORDERED: ONDANSETRON 4 MG/2 ML VIAL IV PRN (17:41)
[2021-03-20] MEDS ORDERED: DEXTROSE 31 GM ORAL.SUSP PO PRN (17:41)
[2021-03-20 18:13] LABS: ALT/SGPT 29 U/L (<40); AST/SGOT 36 U/L (<32); Albumin 4.1 gm/dL (3.2-5.2); Albumin/Globulin Ratio 1.4 (1.0-2.3); Alkaline Phosphatase 100 U/L (39-117); Bilirubin,Direct 0.3 mg/dL (<0.3); Bilirubin,Total 0.9 mg/dL (0.1-1.0); Blood Urea Nitrogen 22 mg/dL (8-23); Calcium 9.7 mg/dL (8.6-10.4); Carbon Dioxide 24 mmol/L (22-30); Chloride 100 mmol/L (96-108); Globulin 2.9 gm/dL (2.2-3.7); Glomerular Filtration Rate 77; Glucose 109 mg/dL (70-105); Lactate Dehydrogenase 319 U/L (135-225); Phosphorous 3.9 mg/dL (2.5-4.5); Triglycerides 80 mg/dL (<150); Uric Acid 5.9 mg/dL (2.5-8.0)
[2021-03-20] MEDS ORDERED: OXYCODONE 5 MG PO PRN (19:38)
--- NOTE | 2021-03-20 19:43 | Internal Med Progress Note ---
SUBJECTIVE Subjective Patient information: Note initiated : 03/20/21 at 7:41 pm Service Date, if different from initiated Date: [] Patient: Greer Mueller 89 y/o F admitted on 03/20/21 for Shortness of breath. Chief Complaint: [] Interval history: Ms. Mueller is a 89 year old female with a history of hypertension, type 2 diabetes mellitus, congestive heart failure, severe aortic stenosis, dementia who resides in a assisted facility presented to the emergency department for shortness of breath. The patient had presented to the ED several days earlier for the same symptoms but discharged back to the SNF given her goals of care and DNR status. Patient was given IV Lasix followed by documented good urinary output response, home oral Lasi. She had a new oxygen requirement of about 2 L/min nasal cannula per review of available documents. Patient presents now with more dyspnea, chest x-ray is consistent with congestive heart failure. Hospital medicine was asked to admit the patient for acute on chronic congestive heart failure. Review of her past medical records and echocardiogram reports indicate that the patient has diastolic heart failure at baseline as well as severe aortic stenosis. The patient has been evaluated for TAVR in the past but he denied any intervention when she was a candidate. The patient is likely no longer a candidate given her severe dementia. 03/21: went into atrial fibrillation with RVR overnight with low blood pressure, amiodarone drip started d/t low blood pressure, good urine output response to IV lasix, oxygen weaned to 3 l/min, ECHO completed and report pending, leukocytosis resolved, decreased Lasix from 40 to 20 mg IV Q12 hrs due to low blood pressures. Review of systems: feels terrible, still short of breath Physical exam Head: Atraumatic, normal inspection. Eyes: normal appearance, no scleral icterus. Neck: full ROM Respiratory: Nasal cannula oxygen supplementation, accessory respiratory muscle use, tachypnea, bilateral rales. Cardiovascular: normal rate and rhythm, distant heart sounds. GI/Abdominal: soft, nontender, no guarding. Extremities: full range of motion, nontender, mild bilateral pedal edema Neurological: CN II-XII intact, intact motor, intact sensation. Psychiatric: normal mood. Skin: warm, normal color Constitutional Vitals: Vital Signs Temp Pulse Resp BP Pulse Ox 98.5 F 89 33 H 117/73 96 03/20/21 17:41 03/20/21 18:20 03/20/21 18:20 03/20/21 17:41 03/20/21 18:20 Period Temp Pulse Resp BP Sys/[place] Pulse Ox Last 24 Hr 96.8 F-98.5 F 41-93 16-36 117-130/70-105 80-100 Intake and Output 03/20/21 03/20/21 03/20/21 05:59 13:59 21:59 Output Total 100 Balance -100 Weight 55.338 kg 55.338 kg Patient Weight 03/21/21 05:59 Weight 55.338 kg Intake & Output: Intake & Output 03/20/21 03/20/21 03/20/21 05:59 13:59 21:59 Output Total 100 Balance -100 Weight 55.338 kg 55.338 kg Output: Void Amount 100 Other: Urine Appearance Clear Urine Color Bright Yellow Urine Odor Normal OBJ DATA Labs CBC & Chem 7: 03/21/21 05:44 03/21/21 05:45 Labs: Abnormal Lab Results 03/20/21 03/20/21 03/20/21 13:28 13:28 13:28 WBC RDW MPV Neut % (Auto) Lymph % (Auto) Lymph # (Auto) Absolute Neutrophils Glucose 109 H 113 H Direct Bilirubin 0.3 H AST 36 H 37 H Lactate Dehydrogenase 319 H Troponin T 0.03 H NT-Pro-B Natriuret Pep 85382.0 H 03/20/21 13:28 WBC 13.5 H RDW 15.3 H MPV 10.7 H Neut % (Auto) 92.6 H Lymph % (Auto) 1.9 L Lymph # (Auto) 0.26 L Absolute Neutrophils 12.49 H Glucose Direct Bilirubin AST Lactate Dehydrogenase Troponin T NT-Pro-B Natriuret Pep Meds: Medications Acetaminophen (Acetaminophen 325 Mg Tablet) 650 mg PO Q6HP PRN; Protocol PRN Reason: Per Pain Protocol/Fever > 101 Aspirin (Aspirin 81 Mg Tab.Chew) 81 mg PO BID [facility]A Atorvastatin Calcium (Atorvastatin 20 Mg Tablet) 20 mg PO HS [facility] Dextrose (Dextrose 50% 50 Ml Vial) 0 ml IV UD PRN PRN Reason: Hypoglycemia Diagnostic Test (Pha) (Accu-Chek 1 Each Strip) 1 each FS ACHS MARTHA Docusate Sodium (Docusate Sodium 100 Mg Capsule) 100 mg PO BID [facility] Enoxaparin Sodium (Enoxaparin 40 Mg/0.4 Ml Syringe) 40 mg SQ DAILY [facility] Furosemide (Furosemide 40 Mg/4 Ml Vial) 40 mg IV Q12 [facility] Gabapentin (Gabapentin 300 Mg Capsule) 300 mg PO BID [facility] Glucose (Dextrose 31 Gm Oral.Susp) 15 gm PO PRN PRN PRN Reason: Hypoglycemia Ibuprofen (Ibuprofen Tablet (Pp) 1 Tablet Tablet) tablet PO Q6H PRN PRN Reason: pain Insulin Human Lispro (Insulin Lispro 1 Unit/0.01 Ml Unit) 0 unit SQ ACHS MARTHA; Protocol Lactulose (Lactulose 20 Gm/30 Ml Oral.Kianna) 10 gm PO DAILYP PRN PRN Reason: Constipation Non-Formulary Medication (Oxycodone) 5 mg PO Q6H PRN PRN Reason: Pain Non-Formulary Medication (Potassium Chloride) 20 meq PO DAILY [facility] Ondansetron HCl (Ondansetron 4 Mg/2 Ml Vial) 4 mg IV Q4HP PRN; Protocol PRN Reason: Nausea And Vomiting Oseltamivir Phosphate (Oseltamivir Phosphate 30 Mg Capsule) 30 mg PO BID [facility] Senna (Sennosides 1 Tablet) 2 tab PO HSP PRN PRN Reason: Constipation Sodium Chloride (0.9 % Sodium Chloride 10 Ml Syringe) 10 ml IV Q8 [facility]THA A/P Narrative A/P Narrative: Assessment: 89 year old female with a history of hypertension, type 2 diabetes mellitus, congestive heart failure, severe aortic stenosis, dementia who resides in a assisted facility now admitted for acute on chronic diastolic heart failure. The patient was also found to have Influenza B by a rapid antigen test. The [facility] rapid antigen test was negative for SARS-CoV- 2. The patient was admitted for diuresis. #Acute hypoxic respiratory failure #Acute on chronic diastolic heart failure #Atrial fibrillation-resolved with Amiodarone drip #Influenza B #Severe aortic stenosis #Type 2 diabetes mellitus #Hypertension #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 #Dementia Plan -Oxygen supplementation, pulse oximetry. -Lasix 20 mg IV Q12 hr, transition to PO lasix soon. -Follow urine output, daily weight. -Follow renal function, electrolytes. -SSI-low, hold home metformin for now. -Oseltamivir x5 days. -Amiodarone drip for afib-wean off per protocol and monitor. -Continue essential meds but holding home BP meds d/t low blood pressure.. -ECHO report pending. -property assessment monitor -Delirium mitigation. -Sodium restriction. -DVT ppx: Lovenox -Code status: DNR, confirmed with daughter -Disposition: probably back to SNF when stable Time Spent With Patient Time: Total time spent is greater than 50% in coordination of care (as documented) at patient's floor/unit and/or counseling patient: QUALITY VTE Deep Vein Thrombosis/Pulmonary Embolism Present on Admission: No
[2021-03-20] MEDS ORDERED: IBUPROFEN 200 MG TABLET PO PRN ×2 (20:12→20:15)
[2021-03-20] MEDS ORDERED: oxyCODONE HCL 5 MG TABLET PO PRN (20:13)
[2021-03-20] MEDS: GABAPENTIN 300 MG CAPSULE PO SCH (20:18)
[2021-03-20] MEDS: 0.9 % SODIUM CHLORIDE 10 ML SYRINGE IV SCH (20:19)
[2021-03-20] MEDS: ATORVASTATIN 20 MG TABLET PO SCH (20:19)
[2021-03-20] MEDS: ASPIRIN 81 MG TAB.CHEW PO SCH (20:19)
[2021-03-20] MEDS: FUROSEMIDE 40 MG/4 ML VIAL IV SCH (20:19)
[2021-03-20] MEDS: OSELTAMIVIR PHOSPHATE 30 MG CAPSULE PO SCH (20:19)
[2021-03-20] MEDS: INSULIN LISPRO 1 UNIT/0.01 ML UNIT SQ SCH ×2 (21:18→21:19)
[2021-03-20] MEDS: DOCUSATE SODIUM 100 MG CAPSULE PO SCH (21:19)
[2021-03-21] MEDS ORDERED: AMIODARONE 150 MG/3 ML VIAL IV ONE (00:13)
[2021-03-21] MEDS ORDERED: AMIODARONE 360 MG/200 ML BAG IV ONE ×2 (00:14→06:37)
[2021-03-21] MEDS: AMIODARONE 360 MG in PREMIX 1 BAG IV SCH ×4 (00:17→17:49)
[2021-03-21] MEDS: 0.9 % SODIUM CHLORIDE 10 ML SYRINGE IV SCH ×3 (05:18→20:25)
[2021-03-21 07:27] LABS: Hematocrit 39.9 % (34.1-44.9); Hemoglobin 12.4 g/dL (11.2-15.7); Mean Cell Volume 89.5 fL (80.0-100.0); Mean Corpuscular HGB Conc 31.1 g/dL (31.0-36.0); Platelet Count 381 K/mcL (140-440); RBC 4.46 M/mcL (3.59-5.38); Red Cell Distribution Width 15.4 % (11.5-14.5); WBC 10.5 K/mcL (4.5-11.0)
[2021-03-21] MEDS: INSULIN LISPRO 1 UNIT/0.01 ML UNIT SQ SCH ×4 (07:30→21:05)
[2021-03-21 07:51] LABS: ALT/SGPT 21 U/L (<40); AST/SGOT 32 U/L (<32); Albumin 3.3 gm/dL (3.2-5.2); Albumin/Globulin Ratio 1.3 (1.0-2.3); Alkaline Phosphatase 75 U/L (39-117); Bilirubin,Direct 0.2 mg/dL (<0.3); Bilirubin,Total 0.6 mg/dL (0.1-1.0); Blood Urea Nitrogen 16 mg/dL (8-23); Calcium 8.6 mg/dL (8.6-10.4); Carbon Dioxide 29 mmol/L (22-30); Chloride 100 mmol/L (96-108); Globulin 2.5 gm/dL (2.2-3.7); Glomerular Filtration Rate 77; Glucose 97 mg/dL (70-105); Lactate Dehydrogenase 291 U/L (135-225); Phosphorous 3.6 mg/dL (2.5-4.5); Triglycerides 73 mg/dL (<150); Uric Acid 6.7 mg/dL (2.5-8.0)
[2021-03-21 08:35] LABS: Anisocytosis 1+ (None Seen); Band Neutrophils % 1 % (0-10); Basophils % (Manual) 1 % (0-2); Eosinophils % (Manual) 2 % (0-7); Lymphocytes % 8 % (15-49); Monocytes % (Manual) 9 % (1-12); Ovalocytes FEW (None Seen); Platelet Estimate NORMAL (Normal); Poikilocytosis FEW (None Seen); RBC Fragments OCC (None Seen); RBC Morphology ABNORMAL (Normal); Segmented Neutrophils % 79 % (38-78)
[2021-03-21] MEDS ORDERED: AMIODARONE 360 MG in PREMIX 1 BAG IV SCH (09:00)
[2021-03-21] MEDS ORDERED: MAGNESIUM SULFATE 2 GM/50 ML BAG IV ONE (09:00)
[2021-03-21] MEDS: FUROSEMIDE 40 MG/4 ML VIAL IV SCH (09:29)
[2021-03-21] MEDS: ENOXAPARIN 40 MG/0.4 ML SYRINGE SQ SCH (09:30)
[2021-03-21] MEDS: POTASSIUM CHLORIDE 20 MEQ TABLET PO SCH (09:30)
[2021-03-21] MEDS: GABAPENTIN 300 MG CAPSULE PO SCH ×2 (09:30→20:25)
[2021-03-21] MEDS: DOCUSATE SODIUM 100 MG CAPSULE PO SCH ×2 (09:30→20:25)
[2021-03-21] MEDS: ASPIRIN 81 MG TAB.CHEW PO SCH ×2 (09:30→20:25)
[2021-03-21] MEDS: OSELTAMIVIR PHOSPHATE 30 MG CAPSULE PO SCH ×2 (09:44→20:40)
--- NOTE | 2021-03-21 13:19 | Internal Med Progress Note ---
SUBJECTIVE Subjective Patient information: Note initiated : 03/21/21 at 1:14 pm Service Date, if different from initiated Date: [] Patient: Greer Mueller 89 y/o F admitted on 03/20/21 for Shortness of breath. Chief Complaint: [] Interval history: Ms. Mueller is a 89 year old female with a history of hypertension, type 2 diabetes mellitus, congestive heart failure, severe aortic stenosis, dementia who resides in a senior living facility presented to the emergency department for shortness of breath. The patient had presented to the ED several days earlier for the same symptoms but discharged back to the SNF given her goals of care and DNR status. Patient was given IV Lasix followed by documented good urinary output response, home oral Lasi. She had a new oxygen requirement of about 2 L/min nasal cannula per review of available documents. Patient presents now with more dyspnea, chest x-ray is consistent with congestive heart failure. Hospital medicine was asked to admit the patient for acute on chronic congestive heart failure. Review of her past medical records and echocardiogram reports indicate that the patient has diastolic heart failure at baseline as well as severe aortic stenosis. The patient has been evaluated for TAVR in the past but he denied any intervention when she was a candidate. The patient is likely no longer a candidate given her severe dementia. 03/21: went into atrial fibrillation with RVR overnight with low blood pressure, amiodarone drip started d/t low blood pressure, good urine output response to IV lasix, oxygen weaned to 3 l/min, ECHO completed and report pending, leukocytosis resolved, decreased Lasix from 40 to 20 mg IV Q12 hrs due to low blood pressures. 03/22 Constitutional Vitals: Vital Signs Temp Pulse Resp BP Pulse Ox 97.6 F 54 L 19 126/63 93 03/21/21 12:00 03/21/21 05:02 03/21/21 12:00 03/21/21 12:00 03/21/21 12:00 Period Temp Pulse Resp BP Sys/Medina Pulse Ox Last 24 Hr 96.8 F-98.5 F 32-155 14-36 78-134/53-105 80-100 Intake and Output 03/20/21 03/21/21 03/21/21 21:59 05:59 13:59 Intake Total 280 301 249 Output Total 500 700 Balance -220 -399 249 Weight 50.213 kg Intake & Output: Intake & Output 03/20/21 03/21/21 03/21/21 21:59 05:59 13:59 Intake Total 280 301 249 Output Total 500 700 Balance -220 -399 249 Weight 50.213 kg Intake: IV 1 249 Nexterone 360 mg In Premix 1 1 199 Bag @ 1 MG/MIN 33.333 mls/hr IV .Q6H [facility] Rx#:[id number] Oral 280 300 Output: Void Amount 500 700 Other: Urine Appearance Clear Clear Urine Color Straw Dark Yellow Urine Odor Normal Normal Exam: General: Alert, Awake, No acute Distress Eyes/N/T: EOMI, Head/Neck: neck supple, CV: RRR, No murmurs, Pulm: Abd: soft, nontender, +BS x4 Ext: no clubbing/cyanosis/edema Neuro: Alert, no focal deficits, moves all extremities, Skin: warm/dry OBJ DATA Labs CBC & Chem 7: 03/21/21 05:44 03/21/21 05:45 Labs: Abnormal Lab Results 03/21/21 03/21/21 03/20/21 05:45 05:44 13:28 WBC RDW 15.4 H MPV 11.0 H Neut % (Auto) Lymph % (Auto) Lymph # (Auto) Seg Neutrophils % 79 H Lymphocytes % 8 L Absolute Neutrophils RBC Morphology Abnormal A Poikilocytosis Few A Anisocytosis 1+ A Ovalocytes Few A RBC Fragments Occ A Glucose Direct Bilirubin GGT 47 H AST 32 H Lactate Dehydrogenase 291 H Troponin T 0.03 H NT-Pro-B Natriuret Pep Total Protein 5.8 L 03/20/21 03/20/21 03/20/21 13:28 13:28 13:28 WBC 13.5 H RDW 15.3 H MPV 10.7 H Neut % (Auto) 92.6 H Lymph % (Auto) 1.9 L Lymph # (Auto) 0.26 L Seg Neutrophils % Lymphocytes % Absolute Neutrophils 12.49 H RBC Morphology Poikilocytosis Anisocytosis Ovalocytes RBC Fragments Glucose 109 H 113 H Direct Bilirubin 0.3 H GGT AST 36 H 37 H Lactate Dehydrogenase 319 H Troponin T NT-Pro-B Natriuret Pep 94555.0 H Total Protein Meds: Medications Acetaminophen (Acetaminophen 325 Mg Tablet) 650 mg PO Q6HP PRN; Protocol PRN Reason: Per Pain Protocol/Fever > 101 Aspirin (Aspirin 81 Mg Tab.Chew) 81 mg PO BID [facility] Last Admin: 03/21/21 09:30 Dose: 81 mg Documented by: Atorvastatin Calcium (Atorvastatin 20 Mg Tablet) 20 mg PO HS [facility] Last Admin: 03/20/21 20:19 Dose: 20 mg Documented by: Dextrose (Dextrose 50% 50 Ml Vial) 0 ml IV UD PRN PRN Reason: Hypoglycemia Diagnostic Test (Pha) (Accu-Chek 1 Each Strip) 1 each FS [facility] Last Admin: 03/21/21 12:29 Dose: 1 each Documented by: Docusate Sodium (Docusate Sodium 100 Mg Capsule) 100 mg PO BID [facility] Last Admin: 03/21/21 09:30 Dose: 100 mg Documented by: Enoxaparin Sodium (Enoxaparin 40 Mg/0.4 Ml Syringe) 40 mg SQ DAILY [facility] Last Admin: 03/21/21 09:30 Dose: 40 mg Documented by: Furosemide (Furosemide 20 Mg/2 Ml Vial) 20 mg IV Q12 [facility] Gabapentin (Gabapentin 300 Mg Capsule) 300 mg PO BID [facility] Last Admin: 03/21/21 09:30 Dose: 300 mg Documented by: Glucose (Dextrose 31 Gm Oral.Susp) 15 gm PO PRN PRN PRN Reason: Hypoglycemia AMIODARONE 360 mg/ Premix 200 mls @ 16.667 mls/hr IV .Q12H [facility] Stop: 03/22/21 00:00 Last Admin: 03/21/21 09:07 Dose: Not Given Documented by: Ibuprofen (Ibuprofen 200 Mg Tablet) 400 mg PO Q6HP PRN PRN Reason: Pain Insulin Human Lispro (Insulin Lispro 1 Unit/0.01 Ml Unit) 0 unit SQ [facility]; Protocol Last Admin: 03/21/21 12:30 Dose: Not Given Documented by: Lactulose (Lactulose 20 Gm/30 Ml Oral.Kianna) 10 gm PO DAILYP PRN PRN Reason: Constipation Ondansetron HCl (Ondansetron 4 Mg/2 Ml Vial) 4 mg IV Q4HP PRN; Protocol PRN Reason: Nausea And Vomiting Oseltamivir Phosphate (Oseltamivir Phosphate 30 Mg Capsule) 30 mg PO BID [facility] Last Admin: 03/21/21 09:44 Dose: 30 mg Documented by: Potassium Chloride (Potassium Chloride 20 Meq Tablet) 20 meq PO QAMCC [facility] Last Admin: 03/21/21 09:30 Dose: 20 meq Documented by: Senna (Sennosides 1 Tablet) 2 tab PO HSP PRN PRN Reason: Constipation Sodium Chloride (0.9 % Sodium Chloride 10 Ml Syringe) 10 ml IV Q8 [facility] Last Admin: 03/21/21 05:18 Dose: 10 ml Documented by: A/P Narrative A/P Narrative: A: #Acute hypoxic respiratory failure: -on 3L NC #Acute on chronic diastolic heart failure: #Severe aortic stenosis: contributing to above #Atrial fibrillation: resolved with Amiodarone drip #Influenza B: #Type 2 diabetes mellitus #Hypertension #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 #Dementia Plan -Oxygen supplementation, pulse oximetry -Lasix 20 mg IV Q12 hr, transition to PO lasix soon. -Follow urine output, daily weight. -Follow renal function, electrolytes. -Amiodarone drip for afib-wean off per protocol and monitor. -ECHO report pending. -Continue essential meds but holding home BP meds d/t low blood pressure. -SSI, hold home metformin for now. -Delirium mitigation. -back to SNF when stable -DVT ppx: Lovenox Code status: DNR, confirmed with daughter Time Spent With Patient Time: Total time spent is greater than 50% in coordination of care (as documented) at patient's floor/unit and/or counseling patient: QUALITY VTE Deep Vein Thrombosis/Pulmonary Embolism Present on Admission: No
[2021-03-21] MEDS: ACETAMINOPHEN 325 MG TABLET PO PRN (20:25)
[2021-03-21] MEDS: ATORVASTATIN 20 MG TABLET PO SCH (20:40)
[2021-03-21] MEDS ORDERED: FUROSEMIDE 20 MG/2 ML VIAL IV SCH (21:00)
[2021-03-21 23:17] LABS: Appearance,Urine CLEAR (Clear); Bilirubin,Urine Negative (Negative); Color,Urine STRAW; Culture Indicated,Urine No; Glucose,Urine (UA) Negative (Negative); Ketones,Urine Negative (Negative); Leukocyte Esterase,Urine Negative /ug (Negative); Mucus,Urine FEW /hpf; Nitrate,Urine Negative (Negative); Protein,Urine Negative (Negative); Specific Gravity,Urine 1.008 (1.000-1.035); Urine Blood 0.03 mg/dL (Negative); Urine Hyaline Cast 10 /lph (0-2); Urine RBC 4 /hpf (0-3); Urine Squamous Epithelial Cell 0 /hpf (0-4); Urine WBC 2 /hpf (0-4); Urobilinogen,Urine Negative
[2021-03-22] MEDS: 0.9 % SODIUM CHLORIDE 10 ML SYRINGE IV SCH ×4 (00:21→20:30)
[2021-03-22] MEDS: ACETAMINOPHEN 325 MG TABLET PO PRN ×3 (04:33→20:29)
[2021-03-22] MEDS ORDERED: FUROSEMIDE 40 MG/4 ML VIAL IV ONE (07:30)
[2021-03-22] MEDS ORDERED: ALBUMIN HUMAN 12.5 GM/50 ML BAG IV ONE (07:30)
--- NOTE | 2021-03-22 07:30 | Internal Med Progress Note ---
SUBJECTIVE Subjective Patient information: Note initiated : 03/22/21 at 7:24 am Service Date, if different from initiated Date: [] Patient: Greer Mueller 89 y/o F admitted on 03/20/21 for Shortness of breath. Chief Complaint: [] Interval history: Ms. Mueller is a 89 year old female with a history of hypertension, type 2 diabetes mellitus, congestive heart failure, severe aortic stenosis, dementia who [facility] presented to the emergency department for shortness of breath. The patient had presented to the ED several days earlier for the same symptoms but discharged back to the SNF given her goals of care and DNR status. Patient was given IV Lasix followed by documented good urinary output response, home oral Lasi. She had a new oxygen requirement of about 2 L/min nasal cannula per review of available documents. Patient presents now with more dyspnea, chest x-ray is consistent with congestive heart failure. Hospital medicine was asked to admit the patient for acute on chronic congestive heart failure. Review of her past medical records and echocardiogram reports indicate that the patient has diastolic heart failure at baseline as well as severe aortic stenosis. The patient has been evaluated for TAVR in the past but he denied any intervention when she was a candidate. The patient is likely no longer a candidate given her severe dementia. 03/21: went into atrial fibrillation with RVR overnight with low blood pressure, amiodarone drip started d/t low blood pressure, good urine output response to IV lasix, oxygen weaned to 3 l/min, ECHO completed and report pending, leukocytosis resolved, decreased Lasix from 40 to 20 mg IV Q12 hrs due to low blood pressures. 03/22 Patient sitting in chair eating breakfast. Appears comfortable. Denies cough. Denies shortness of breath at rest and says maybe she feels some shortness of breath with exertion but otherwise no complaints. Follow-up chest x-ray similar. 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 Review of Systems: denies headache/fever/chills/nausea/vomiting/chest or abdominal pain/cough/diarrhea. Otherwise see above. Constitutional Vitals: Vital Signs Temp Pulse Resp BP Pulse Ox 97.4 F 75 28 H 108/77 93 03/22/21 04:29 03/22/21 05:00 03/22/21 05:00 03/22/21 04:29 03/22/21 05:00 Period Temp Pulse Resp BP Sys/Medina Pulse Ox Last 24 Hr 97.0 F-98.4 F 66-75 15-33 85-148/50-115 85-97 Intake and Output 03/21/21 03/22/21 03/22/21 21:59 05:59 13:59 Intake Total 440 349 Output Total 560 350 Balance -120 -1 Weight 51.211 kg Intake & Output: Intake & Output 03/21/21 03/22/21 03/22/21 21:59 05:59 13:59 Intake Total 440 349 Output Total 560 350 Balance -120 -1 Weight 51.211 kg Intake: Nourishment/Supplement quantity 120 (ml) IV 200 109 Nexterone 360 mg In Premix 1 200 109 Bag @ 0.5 MG/MIN 16.667 mls/hr IV .Q12H [facility] Rx#:[id number] Oral 240 120 Output: Urine Catheter Amount 350 Void Amount 560 Other: Meal Dinner Nourishment/Supplement Percent of Meal Consumed 75% Feeding Ability Independent Nourishment/Supplement name Glucerna Urine Appearance Clear Clear Uretheral (Wall) Clear Urine Color Bright Yellow Bright Yellow Uretheral (Wall) Pale Urine Odor Strong Strong Uretheral (Wall) Strong Exam: General: Alert, Awake, No acute Distress Eyes/N/T: EOMI, Head/Neck: neck supple, CV: regular with occ irregularity, SM Pulm: mild rales b/l, no wheezing Abd: soft, nontender, +BS x4 Ext: no clubbing/cyanosis/edema Neuro: Alert, no focal deficits, moves all extremities, Skin: warm/dry OBJ DATA Labs CBC & Chem 7: 03/21/21 05:44 03/21/21 05:45 Labs: Abnormal Lab Results 03/21/21 03/21/21 03/21/21 22:13 05:45 05:44 WBC RDW 15.4 H MPV 11.0 H Neut % (Auto) Lymph % (Auto) Lymph # (Auto) Seg Neutrophils % 79 H Lymphocytes % 8 L Absolute Neutrophils RBC Morphology Abnormal A Poikilocytosis Few A Anisocytosis 1+ A Ovalocytes Few A RBC Fragments Occ A Glucose Direct Bilirubin GGT 47 H AST 32 H Lactate Dehydrogenase 291 H Troponin T NT-Pro-B Natriuret Pep Total Protein 5.8 L Urine RBC 4 H Hyaline Casts 10 H Urine Mucus Few A 03/20/21 03/20/21 03/20/21 13:28 13:28 13:28 WBC RDW MPV Neut % (Auto) Lymph % (Auto) Lymph # (Auto) Seg Neutrophils % Lymphocytes % Absolute Neutrophils RBC Morphology Poikilocytosis Anisocytosis Ovalocytes RBC Fragments Glucose 109 H 113 H Direct Bilirubin 0.3 H GGT AST 36 H 37 H Lactate Dehydrogenase 319 H Troponin T 0.03 H NT-Pro-B Natriuret Pep 33382.0 H Total Protein Urine RBC Hyaline Casts Urine Mucus 03/20/21 13:28 WBC 13.5 H RDW 15.3 H MPV 10.7 H Neut % (Auto) 92.6 H Lymph % (Auto) 1.9 L Lymph # (Auto) 0.26 L Seg Neutrophils % Lymphocytes % Absolute Neutrophils 12.49 H RBC Morphology Poikilocytosis Anisocytosis Ovalocytes RBC Fragments Glucose Direct Bilirubin GGT AST Lactate Dehydrogenase Troponin T NT-Pro-B Natriuret Pep Total Protein Urine RBC Hyaline Casts Urine Mucus Meds: Medications Acetaminophen (Acetaminophen 325 Mg Tablet) 650 mg PO Q6HP PRN; Protocol PRN Reason: Per Pain Protocol/Fever > 101 Last Admin: 03/22/21 04:33 Dose: 650 mg Documented by: Aspirin (Aspirin 81 Mg Tab.Chew) 81 mg PO BID [facility] Last Admin: 03/21/21 20:25 Dose: 81 mg Documented by: Atorvastatin Calcium (Atorvastatin 20 Mg Tablet) 20 mg PO HS [facility] Last Admin: 03/21/21 20:40 Dose: 20 mg Documented by: Dextrose (Dextrose 50% 50 Ml Vial) 0 ml IV UD PRN PRN Reason: Hypoglycemia Diagnostic Test (Pha) (Accu-Chek 1 Each Strip) 1 each FS [facility] Last Admin: 03/21/21 20:45 Dose: 1 each Documented by: Docusate Sodium (Docusate Sodium 100 Mg Capsule) 100 mg PO BID [facility] Last Admin: 03/21/21 20:25 Dose: 100 mg Documented by: Enoxaparin Sodium (Enoxaparin 40 Mg/0.4 Ml Syringe) 40 mg SQ DAILY [facility] Last Admin: 03/21/21 09:30 Dose: 40 mg Documented by: Furosemide (Furosemide 20 Mg/2 Ml Vial) 20 mg IV Q12 [facility] Last Admin: 03/21/21 20:25 Dose: 20 mg Documented by: Gabapentin (Gabapentin 300 Mg Capsule) 300 mg PO BID [facility] Last Admin: 03/21/21 20:25 Dose: 300 mg Documented by: Glucose (Dextrose 31 Gm Oral.Susp) 15 gm PO PRN PRN PRN Reason: Hypoglycemia Ibuprofen (Ibuprofen 200 Mg Tablet) 400 mg PO Q6HP PRN PRN Reason: Pain Insulin Human Lispro (Insulin Lispro 1 Unit/0.01 Ml Unit) 0 unit SQ [facility]; Protocol Last Admin: 03/21/21 21:05 Dose: Not Given Documented by: Lactulose (Lactulose 20 Gm/30 Ml Oral.Kianna) 10 gm PO DAILYP PRN PRN Reason: Constipation Ondansetron HCl (Ondansetron 4 Mg/2 Ml Vial) 4 mg IV Q4HP PRN; Protocol PRN Reason: Nausea And Vomiting Oseltamivir Phosphate (Oseltamivir Phosphate 30 Mg Capsule) 30 mg PO BID [facility] Last Admin: 03/21/21 20:40 Dose: 30 mg Documented by: Potassium Chloride (Potassium Chloride 20 Meq Tablet) 20 meq PO QAMCC [facility] Last Admin: 03/21/21 09:30 Dose: 20 meq Documented by: Senna (Sennosides 1 Tablet) 2 tab PO HSP PRN PRN Reason: Constipation Sodium Chloride (0.9 % Sodium Chloride 10 Ml Syringe) 10 ml IV Q8 [facility] Last Admin: 03/22/21 00:21 Dose: 10 ml Documented by: A/P Narrative A/P Narrative: A: #Acute hypoxic respiratory failure: -placed on bipap last night but back on NC this morning #Acute on chronic diastolic heart failure: #Severe aortic stenosis and mitral stenosis: contributing to above -was evaluated in past for TAVR but pt denied at that time, now with severe Dementia not likely a candidate #Atrial fibrillation w/RVR: resolved with Amiodarone drip #Influenza B: #DM: #HTN: #Dementia: #?chronic prednisone use, 5mg, unsure why she is taking Plan: -Oxygen supplementation wean -IV Lasix -Follow urine output, daily weight. -Follow renal function, electrolytes. -Amiodarone drip finished per protocol -ECHO report pending. -Oseltamivir x5 days -hold ACEI/norvasc d/t low blood pressure -cont ASA/statin -?on prednisone at home, clarify -SSI, hold home metformin for now -Delirium mitigation. -back to SNF when stable -DVT ppx: Lovenox Code status: DNR, confirmed with daughter Time Spent With Patient Time: Total time spent is greater than 50% in coordination of care (as documented) at patient's floor/unit and/or counseling patient: QUALITY VTE Deep Vein Thrombosis/Pulmonary Embolism Present on Admission: No
[2021-03-22] MEDS: INSULIN LISPRO 1 UNIT/0.01 ML UNIT SQ SCH ×4 (08:12→20:35)
--- NOTE | 2021-03-22 08:48 | EKG ---
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 Measurements Intervals [place] Rate: 87 P: 65 ME: 128 QRS: 15 QRSD: 78 T: 166 QT: 368 QTc: 443 Interpretive Statements SINUS RHYTHM MULTIPLE PREMATURE COMPLEXES, VENT & SUPRAVEN LVH WITH SECONDARY REPOLARIZATION ABNORMALITY Electronically Signed On 03-22-2021 8:48:33 PDT by Aquilino Kwon M.D. /[id number]
--- NOTE | 2021-03-22 08:50 | EKG ---
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 Measurements Intervals [place] Rate: 128 P: ID: QRS: 17 QRSD: 86 T: 195 QT: 312 QTc: 456 Interpretive Statements ATRIAL FIBRILLATION, V-RATE 84-163 FREQUENT PVCs LVH WITH SECONDARY REPOLARIZATION ABNORMALITY ST DEPRESSION, PROBABLY RATE RELATED OR DIGOXIN EFFECT ANTERIOR ST ELEVATION, PROBABLY DUE TO LVH Electronically Signed On 03-22-2021 8:50:39 PDT by Aquilino Kwon M.D. /[email or web address]/[id number]
[2021-03-22] MEDS: DOCUSATE SODIUM 100 MG CAPSULE PO SCH ×2 (08:52→20:35)
[2021-03-22] MEDS: ASPIRIN 81 MG TAB.CHEW PO SCH ×2 (08:52→20:29)
[2021-03-22] MEDS: ENOXAPARIN 40 MG/0.4 ML SYRINGE SQ SCH (08:52)
[2021-03-22] MEDS: POTASSIUM CHLORIDE 20 MEQ TABLET PO SCH (08:52)
[2021-03-22] MEDS: GABAPENTIN 300 MG CAPSULE PO SCH ×2 (08:52→20:29)
--- NOTE | 2021-03-22 09:37 | XRay Report ---
HISTORY: Follow-up congestive heart failure FINDINGS: Severe alveolar infiltrates are again seen throughout both lungs. The heart is severely enlarged. There are bilateral pleural effusions. Comparison with the prior exam from 03/20/21 shows no significant change. IMPRESSION: Severe congestive heart failure with pulmonary edema and no significant change Interpreted and Authenticated by: Rishabh Kwon 03/22/21
[2021-03-22 10:02] LABS: ALT/SGPT 20 U/L (<40); AST/SGOT 26 U/L (<32); Albumin 3.3 gm/dL (3.2-5.2); Albumin/Globulin Ratio 1.4 (1.0-2.3); Alkaline Phosphatase 79 U/L (39-117); Bilirubin,Direct 0.2 mg/dL (<0.3); Bilirubin,Total 0.6 mg/dL (0.1-1.0); Blood Urea Nitrogen 15 mg/dL (8-23); Calcium 8.2 mg/dL (8.6-10.4); Carbon Dioxide 28 mmol/L (22-30); Chloride 100 mmol/L (96-108); Globulin 2.3 gm/dL (2.2-3.7); Glomerular Filtration Rate 81; Glucose 101 mg/dL (70-105); Lactate Dehydrogenase 305 U/L (135-225); Phosphorous 3.2 mg/dL (2.5-4.5); Triglycerides 80 mg/dL (<150)
[2021-03-22] MEDS: OSELTAMIVIR PHOSPHATE 30 MG CAPSULE PO SCH ×2 (10:21→20:29)
[2021-03-22] MEDS ORDERED: predniSONE 5 MG TABLET PO ONE (12:16)
[2021-03-22] MEDS ORDERED: POTASSIUM CHLORIDE 20 MEQ TABLET PO ONE ×2 (13:38→16:00)
[2021-03-22] MEDS ORDERED: FUROSEMIDE 20 MG/2 ML VIAL IV ONE (16:00)
[2021-03-22] MEDS ORDERED: METOPROLOL TARTRATE 5 MG/5 ML VIAL IV PRN (18:23)
[2021-03-22] MEDS: ATORVASTATIN 20 MG TABLET PO SCH (20:29)
[2021-03-23] MEDS: 0.9 % SODIUM CHLORIDE 10 ML SYRINGE IV SCH ×3 (02:20→05:23)
[2021-03-23] MEDS ORDERED: HALOPERIDOL LACTATE 5 MG/ML VIAL ONE ×2 (04:09→04:37)
[2021-03-23] MEDS ORDERED: IPRATROPIUM/ALBUTEROL 3 ML AMPUL.NEB NEB ONE ×2 (04:09→04:12)
[2021-03-23] MEDS ORDERED: HALOPERIDOL LACTATE 5 MG/ML VIAL IV ONE ×2 (04:14→04:41)
[2021-03-23] MEDS ORDERED: 0.9 % SODIUM CHLORIDE 250 ML IV SCH ×2 (08:00→10:10)
[2021-03-23] MEDS ORDERED: NOREPINEPHRINE BITARTRATE 8 MG in 0.9 % SODIUM CHLORIDE 242 ML IV SCH ×2 (08:00→22:00)
[2021-03-23] MEDS ORDERED: ALBUMIN HUMAN 12.5 GM/50 ML BAG IV ONE (08:02)
--- NOTE | 2021-03-23 08:16 | Internal Med Progress Note ---
SUBJECTIVE Subjective Patient information: Note initiated : 03/23/21 at 8:04 am Service Date, if different from initiated Date: [] Patient: Greer Mueller 89 y/o F admitted on 03/20/21 for Shortness of breath. Chief Complaint: [] Interval history: Ms. Mueller is a 89 year old female with a history of hypertension, type 2 diabetes mellitus, congestive heart failure, severe aortic stenosis, dementia who resides in a [facility] facility presented to the emergency department for shortness of breath. The patient had presented to the ED several days earlier for the same symptoms but discharged back to the SNF given her goals of care and DNR status. Patient was given IV Lasix followed by documented good urinary output response, home oral Lasi. She had a new oxygen requirement of about 2 L/min nasal cannula per review of available documents. Patient presents now with more dyspnea, chest x-ray is consistent with congestive heart failure. Hospital medicine was asked to admit the patient for acute on chronic congestive heart failure. Review of her past medical records and echocardiogram reports indicate that the patient has diastolic heart failure at baseline as well as severe aortic stenosis. The patient has been evaluated for TAVR in the past but he denied any intervention when she was a candidate. The patient is likely no longer a candidate given her severe dementia. 03/21: went into atrial fibrillation with RVR overnight with low blood pressure, amiodarone drip started d/t low blood pressure, good urine output response to IV lasix, oxygen weaned to 3 l/min, ECHO completed and report pending, leukocytosis resolved, decreased Lasix from 40 to 20 mg IV Q12 hrs due to low blood pressures. 03/22 Patient sitting in chair eating breakfast. Appears comfortable. Denies cough. Denies shortness of breath at rest and says maybe she feels some shortness of breath with exertion but otherwise no complaints. Follow-up chest x-ray similar. 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 03/23 Patient became agitated last night. Switch from nasal cannula oxygen mask last night for better oxygen saturations. Patient later became quite agitated and to cough mask becoming tachypneic and would not leave BiPAP. Patient given Haldol. A little while later she had a brief run of V. tach and was hypertensive and had a short A. fib RVR episode was given 5 IV Lopressor with good effect. Patient continued to become agitated and was given Haldol in hopes to avoid lines being placed out and potential falling. Patient finally became more calm was continued on oxygen mask at 12 with sats in the low 90s. Patient still appeared dyspneic and was put on BiPAP. By the morning her blood pressure was low. We placed her on Levophed and gave her albumin. Patient now on Levophed but low-dose and on 2 L oxygen mask. Family was here late overnight because of her serious condition. Patient does admit to may be feeling a little short of breath. Denies cough. Review of Systems: denies headache/fever/chills/nausea/vomiting/chest or abdominal pain/cough/diarrhea. Otherwise see above. Constitutional Vitals: Vital Signs Temp Pulse Resp BP Pulse Ox 97.9 F 75 17 88/67 94 03/23/21 04:02 03/23/21 05:53 03/23/21 06:25 03/23/21 06:25 03/23/21 06:25 Period Temp Pulse Resp BP Sys/Medina Pulse Ox Last 24 Hr 97.3 F-97.9 F 75-86 15-35 88-191/53-153 78-98 Intake and Output 03/22/21 03/23/21 03/23/21 21:59 05:59 13:59 Intake Total 240 Output Total 1100 200 Balance -1100 40 Weight 52.844 kg Intake & Output: Intake & Output 03/22/21 03/23/21 03/23/21 21:59 05:59 13:59 Intake Total 240 Output Total 1100 200 Balance -1100 40 Weight 52.844 kg Intake: Nourishment/Supplement quantity 240 (ml) Output: Urine Catheter Amount 1100 200 Other: Meal Nourishment/Supplement Nourishment/Supplement Percent of Meal Consumed 100% Nourishment/Supplement name Glucerna Urine Appearance Clear Clear Uretheral (Wall) Clear Urine Color Bright Yellow Bright Yellow Uretheral (Wall) Bright Yellow Urine Odor Normal Normal Stool Size Large Stool Color Brown Stool Consistency Liquid # Bowel Movements 2 Exam: General: Alert, Awake, No acute Distress Eyes/N/T: EOMI, Head/Neck: neck supple, CV: regular with occ irregularity, SM 3/6 Pulm: mild rales b/l, no wheezing Abd: soft, nontender, +BS x4 Ext: no clubbing/cyanosis/edema Neuro: Alert, no focal deficits, moves all extremities, Skin: warm/dry OBJ DATA Labs CBC & Chem 7: 03/21/21 05:44 03/22/21 05:49 Labs: Abnormal Lab Results 03/22/21 03/22/21 03/21/21 05:49 05:49 22:13 WBC RDW MPV Neut % (Auto) Lymph % (Auto) Lymph # (Auto) Seg Neutrophils % Lymphocytes % Absolute Neutrophils RBC Morphology Poikilocytosis Anisocytosis Ovalocytes RBC Fragments Glucose Calcium 8.2 L Direct Bilirubin GGT AST Lactate Dehydrogenase 305 H Troponin T NT-Pro-B Natriuret Pep 8286.0 H Total Protein 5.6 L Urine RBC 4 H Hyaline Casts 10 H Urine Mucus Few A 03/21/21 03/21/21 03/20/21 05:45 05:44 13:28 WBC RDW 15.4 H MPV 11.0 H Neut % (Auto) Lymph % (Auto) Lymph # (Auto) Seg Neutrophils % 79 H Lymphocytes % 8 L Absolute Neutrophils RBC Morphology Abnormal A Poikilocytosis Few A Anisocytosis 1+ A Ovalocytes Few A RBC Fragments Occ A Glucose Calcium Direct Bilirubin GGT 47 H AST 32 H Lactate Dehydrogenase 291 H Troponin T 0.03 H NT-Pro-B Natriuret Pep Total Protein 5.8 L Urine RBC Hyaline Casts Urine Mucus 03/20/21 03/20/21 03/20/21 13:28 13:28 13:28 WBC 13.5 H RDW 15.3 H MPV 10.7 H Neut % (Auto) 92.6 H Lymph % (Auto) 1.9 L Lymph # (Auto) 0.26 L Seg Neutrophils % Lymphocytes % Absolute Neutrophils 12.49 H RBC Morphology Poikilocytosis Anisocytosis Ovalocytes RBC Fragments Glucose 109 H 113 H Calcium Direct Bilirubin 0.3 H GGT AST 36 H 37 H Lactate Dehydrogenase 319 H Troponin T NT-Pro-B Natriuret Pep 19678.0 H Total Protein Urine RBC Hyaline Casts Urine Mucus Meds: Medications Acetaminophen (Acetaminophen 325 Mg Tablet) 650 mg PO Q6HP PRN; Protocol PRN Reason: Per Pain Protocol/Fever > 101 Last Admin: 03/22/21 20:29 Dose: 650 mg Documented by: Aspirin (Aspirin 81 Mg Tab.Chew) 81 mg PO BID [facility] Last Admin: 03/22/21 20:29 Dose: 81 mg Documented by: Atorvastatin Calcium (Atorvastatin 20 Mg Tablet) 20 mg PO HS [facility] Last Admin: 03/22/21 20:29 Dose: 20 mg Documented by: Dextrose (Dextrose 50% 50 Ml Vial) 0 ml IV UD PRN PRN Reason: Hypoglycemia Diagnostic Test (Pha) (Accu-Chek 1 Each Strip) 1 each FS ACHS [facility] Last Admin: 03/22/21 20:35 Dose: 1 each Documented by: Docusate Sodium (Docusate Sodium 100 Mg Capsule) 100 mg PO BID [facility] Last Admin: 03/22/21 20:35 Dose: Not Given Documented by: Enoxaparin Sodium (Enoxaparin 40 Mg/0.4 Ml Syringe) 40 mg SQ DAILY [facility] Last Admin: 03/22/21 08:52 Dose: 40 mg Documented by: Gabapentin (Gabapentin 300 Mg Capsule) 300 mg PO BID [facility] Last Admin: 03/22/21 20:29 Dose: 300 mg Documented by: Glucose (Dextrose 31 Gm Oral.Susp) 15 gm PO PRN PRN PRN Reason: Hypoglycemia Norepinephrine Bitartrate 8 mg (/ Sodium Chloride) 250 mls @ 18.75 mls/hr IV Q14H [facility]; Protocol Sodium Chloride (Sodium Chloride 0.9%) 250 mls @ 20 mls/hr IV .[id number] [facility] Albumin Human (Buminate) 12.5 gm in 50 mls @ 100 mls/hr IV ONCE ONE Stop: 03/23/21 08:31 Ibuprofen (Ibuprofen 200 Mg Tablet) 400 mg PO Q6HP PRN PRN Reason: Pain Last Admin: 03/22/21 10:21 Dose: 400 mg Documented by: Insulin Human Lispro (Insulin Lispro 1 Unit/0.01 Ml Unit) 0 unit SQ [facility]; Protocol Last Admin: 03/22/21 20:35 Dose: Not Given Documented by: Lactulose (Lactulose 20 Gm/30 Ml Oral.Kianna) 10 gm PO DAILYP PRN PRN Reason: Constipation Last Admin: 03/22/21 08:52 Dose: 10 gm Documented by: Metoprolol Tartrate (Metoprolol Tartrate 5 Mg/5 Ml Vial) 5 mg IV Q2HP PRN PRN Reason: Tachyarrhythmias Last Admin: 03/23/21 04:35 Dose: 5 mg Documented by: Ondansetron HCl (Ondansetron 4 Mg/2 Ml Vial) 4 mg IV Q4HP PRN; Protocol PRN Reason: Nausea And Vomiting Last Admin: 03/23/21 05:22 Dose: 4 mg Documented by: Oseltamivir Phosphate (Oseltamivir Phosphate 30 Mg Capsule) 30 mg PO BID [facility] Last Admin: 03/22/21 20:29 Dose: 30 mg Documented by: Potassium Chloride (Potassium Chloride 20 Meq Tablet) 20 meq PO [facility] Last Admin: 03/22/21 08:52 Dose: 20 meq Documented by: Prednisone (Prednisone 5 Mg Tablet) 5 mg PO [facility] Senna (Sennosides 1 Tablet) 2 tab PO [facility] PRN PRN Reason: Constipation Sodium Chloride (0.9 % Sodium Chloride 10 Ml Syringe) 10 ml IV Q8 [facility] Last Admin: 03/23/21 05:23 Dose: 10 ml Documented by: A/P Narrative A/P Narrative: A: #Acute hypoxic respiratory failure: -on oxymask 12L #Acute on chronic diastolic heart failure: -net neg 2L's, increased UOP yesterday with increased lasix dose #Severe aortic stenosis and mitral stenosis: contributing to above -was evaluated in past for TAVR but pt denied at that time, now with severe Dementia not likely a candidate #Atrial fibrillation w/RVR: resolved with Amiodarone drip #Hypotension: intermittently low chronically, lower this morning #Influenza B: #DM: #HTN: #Dementia: #chronic prednisone use, 5mg, unsure why she is taking #Goals of care: guarded prognosis Plan: -Oxygen supplementation wean -IV Lasix hold for today given hypotension, albumin/levophed ordered -Follow urine output, daily weight. -ECHO report pending -Oseltamivir x5 days -hold ACEI/norvasc d/t low blood pressure -cont ASA/statin -SSI, hold home metformin for now -Delirium mitigation. -back to SNF when stable -family discussion -DVT ppx: Lovenox Code status: DNR, confirmed with daughter Time Spent With Patient Time: Total time spent is greater than 50% in coordination of care (as documented) at patient's floor/unit and/or counseling patient: QUALITY VTE Deep Vein Thrombosis/Pulmonary Embolism Present on Admission: No
[2021-03-23 09:00] LABS: ALT/SGPT 23 U/L (<40); AST/SGOT 29 U/L (<32); Albumin 4.2 gm/dL (3.2-5.2); Albumin/Globulin Ratio 1.5 (1.0-2.3); Alkaline Phosphatase 91 U/L (39-117); Bilirubin,Direct 0.2 mg/dL (<0.3); Bilirubin,Total 0.8 mg/dL (0.1-1.0); Blood Urea Nitrogen 9 mg/dL (8-23); Carbon Dioxide 27 mmol/L (22-30); Chloride 97 mmol/L (96-108); Globulin 2.8 gm/dL (2.2-3.7); Glomerular Filtration Rate 81; Glucose 211 mg/dL (70-105); Lactate Dehydrogenase 352 U/L (135-225); Phosphorous 3.7 mg/dL (2.5-4.5); Triglycerides 94 mg/dL (<150); Uric Acid 4.8 mg/dL (2.5-8.0)
[2021-03-23] MEDS ORDERED: predniSONE 5 MG TABLET PO SCH (09:00)
[2021-03-23] MEDS: DOCUSATE SODIUM 100 MG CAPSULE PO SCH (09:36)
[2021-03-23] MEDS: INSULIN LISPRO 1 UNIT/0.01 ML UNIT SQ SCH (09:40)
[2021-03-23] MEDS: ENOXAPARIN 40 MG/0.4 ML SYRINGE SQ SCH (10:00)
[2021-03-23] MEDS: ACETAMINOPHEN 325 MG TABLET PO PRN (10:01)
[2021-03-23] MEDS: ASPIRIN 81 MG TAB.CHEW PO SCH (10:01)
[2021-03-23] MEDS: GABAPENTIN 300 MG CAPSULE PO SCH (10:02)
[2021-03-23] MEDS: POTASSIUM CHLORIDE 20 MEQ TABLET PO SCH (10:02)
[2021-03-23] MEDS: OSELTAMIVIR PHOSPHATE 30 MG CAPSULE PO SCH (10:06)
[2021-03-23] MEDS ORDERED: SENNOSIDES 1 TABLET PO PRN (10:10)
[2021-03-23] MEDS ORDERED: ONDANSETRON 4 MG/2 ML VIAL IV PRN ×2 (10:10→13:59)
[2021-03-23] MEDS ORDERED: ACETAMINOPHEN 325 MG TABLET PO PRN (10:10)
[2021-03-23] MEDS ORDERED: IBUPROFEN 200 MG TABLET PO PRN (10:10)
[2021-03-23] MEDS ORDERED: DEXTROSE 31 GM ORAL.SUSP PO PRN (10:10)
[2021-03-23] MEDS ORDERED: METOPROLOL TARTRATE 5 MG/5 ML VIAL IV PRN (10:10)
[2021-03-23] MEDS ORDERED: DEXTROSE 50% 50 ML VIAL IV PRN (10:10)
[2021-03-23] MEDS ORDERED: LACTULOSE 20 GM/30 ML ORAL.SOL PO PRN (10:10)
[2021-03-23] MEDS ORDERED: INSULIN LISPRO 1 UNIT/0.01 ML UNIT SQ SCH (11:30)
[2021-03-23] MEDS ORDERED: morphine 4 MG/ML VIAL NEB PRN (13:59)
[2021-03-23] MEDS ORDERED: LACTOPEROXI/GLUC OXID/POT THIO 1 EACH GEL..EA. TOPICAL PRN (13:59)
[2021-03-23] MEDS ORDERED: ONDANSETRON 4 MG ODT TABLET SL PRN (13:59)
[2021-03-23] MEDS ORDERED: 0.9 % SODIUM CHLORIDE 10 ML SYRINGE IV SCH ×2 (14:00)
[2021-03-23] MEDS: LORazepam 2 MG/ML VIAL IV PRN ×2 (14:45→17:00)
[2021-03-23] MEDS: morphine 4 MG/ML VIAL IV PRN ×2 (14:45→17:00)
--- NOTE | 2021-03-23 20:45 | Death Note ---
Discharge Sum: Prov Provider Patient information: Note initiated : 03/23/21 at 8:44 pm Service Date, if different from initiated Date: [] Patient: Greer Mueller 89 y/o F admitted on 03/20/21 for Shortness of breath. Chief Complaint: [] Primary care physician: Libby Hawthorne Consults: 03/20/21 Consult to Physician [CONS] Stat Comment: Consulting Provider: Ramo Chaudhry Reason For Exam: Physician to Consult Discharge Sum: Summary Date and Time Date of admission: 03/20/21 17:15 Summary Details: Interval history: Ms. Mueller is a 89 year old female with a history of hypertension, type 2 diabetes mellitus, congestive heart failure, severe aortic stenosis, dementia who [facility] presented to the emergency department for shortness of breath. The patient had presented to the ED several days earlier for the same symptoms but discharged back to the SNF given her goals of care and DNR status. Patient was given IV Lasix followed by documented good urinary output response, home oral Lasi. She had a new oxygen requirement of about 2 L/min nasal cannula per review of available documents. Patient presents now with more dyspnea, chest x-ray is consistent with congestive heart failure. Hospital medicine was asked to admit the patient for acute on chronic congestive heart failure. Review of her past medical records and echocardiogram reports indicate that the patient has diastolic heart failure at baseline as well as severe aortic stenosis. The patient has been evaluated for TAVR in the past but he denied any intervention when she was a candidate. The patient is likely no longer a candidate given her severe dementia. 03/21: went into atrial fibrillation with RVR overnight with low blood pressure, amiodarone drip started d/t low blood pressure, good urine output response to IV lasix, oxygen weaned to 3 l/min, ECHO completed and report pending, leukocytosis resolved, decreased Lasix from 40 to 20 mg IV Q12 hrs due to low blood pressures. 03/22 Patient sitting in chair eating breakfast. Appears comfortable. Denies cough. Denies shortness of breath at rest and says maybe she feels some shortness of breath with exertion but otherwise no complaints. Follow-up chest x-ray similar. Awaiting official echocardiogram report but per verbal from fruit i farmworker she had very severe aortic stenosis. 03/23 Patient became agitated last night. Switch from nasal cannula oxygen mask last night for better oxygen saturations. Patient later became quite agitated and to cough mask becoming tachypneic and would not leave BiPAP. Patient given Davies ldol. A little while later she had a brief run of V. tach and was hypertensive and had a short A. fib RVR episode was given 5 IV Lopressor with good effect. Patient continued to become agitated and was given Haldol in hopes to avoid lines being placed out and potential falling. Patient finally became more calm was continued on oxygen mask at 12 with sats in the low 90s. Patient still appeared dyspneic and was put on BiPAP. By the morning her blood pressure was low. We placed her on Levophed and gave her albumin. Patient now on Levophed but low-dose and on 2 L oxygen mask. Family was here late overnight because of her serious condition. Patient does admit to may be feeling a little short of breath. Denies cough. Had a conversation with the patient's daughter about goals of care. The daughter stated her mom and states she was ready to go even when she came into the ED. I explained how the patient's course has been going on in the recent decline. The poor prognosis with the severe valvular disease and age and underlying medical conditions. Family decided to transition to comfort care at this time. Pt at 2038 A/P Narrative: A: #Acute hypoxic respiratory failure: -on oxymask 12L #Acute on chronic diastolic heart failure with severe Valular dz: -net neg 2L's, increased UOP yesterday with increased lasix dose #Severe aortic stenosis and mitral stenosis: contributing to above -was evaluated in past for TAVR but pt denied at that time, now with severe Dementia not likely a candidate #Atrial fibrillation w/RVR: resolved with Amiodarone drip #Hypotension: intermittently low chronically, lower this morning #Influenza B: #DM: #HTN: #Dementia: #chronic prednisone use, 5mg, unsure why she is taking Additional Data Attending physician: Ramo Chaudhry MD
[2021-03-23] MEDS ORDERED: OSELTAMIVIR PHOSPHATE 30 MG CAPSULE PO SCH (21:00)
[2021-03-23] MEDS ORDERED: DOCUSATE SODIUM 100 MG CAPSULE PO SCH (21:00)
[2021-03-23] MEDS ORDERED: GABAPENTIN 300 MG CAPSULE PO SCH (21:00)
[2021-03-23] MEDS ORDERED: ASPIRIN 81 MG TAB.CHEW PO SCH (21:00)
[2021-03-23] MEDS ORDERED: ATORVASTATIN 20 MG TABLET PO SCH (21:00)
[2021-03-24] MEDS ORDERED: POTASSIUM CHLORIDE 20 MEQ TABLET PO SCH (08:00)
[2021-03-24] MEDS ORDERED: predniSONE 5 MG TABLET PO SCH (08:00)
[2021-03-24] MEDS ORDERED: ENOXAPARIN 40 MG/0.4 ML SYRINGE SQ SCH (09:00)
== END 2021-03-23 21:55 | disposition expired | DRG 189 ==
LOC: ED 13:04 → ICU 17:15
PROVIDERS: ADMIT Internal Medicine; ATTEND Internal Medicine